=== PATIENT | female | born 1945 | race Caucasian/White ===

== ENCOUNTER 2017-01-07 19:14 | Inpatient (IN) | payer MEDICARE, OTHER ==
[~2017-01-07] VITALS: Ht 160 cm; Wt 65.4 kg
[~2017-01-07 19:14] MED LIST: ALBU8I INH; ASPI325T PO; BUPR150T3 PO; CLON.2 PO; DABI150 PO; DILTCD300 PO; DOCU1CAP39 PO; DOXY100 PO; ENAL10 PO; ENAL10TA7 PO; FERR324T4 PO; FLON0.053; GLUC1VIA2 IM; JANU50TA PO; LEVEMIR SQ; MAPA325T6 PO; NOVOLOGSS SQ; OMEP20TA39 PO; ROBIDM5S PO; SOTA80TA PO; ULTR50TA PO; VITA20002 PO
[2017-01-07 19:41] VITALS: BP 151/77; PULSE 97; RESP 18; TEMP 99.5; O2SAT 97
[2017-01-07] MEDS ORDERED: IBUPROFEN SUSP 100 MG/5 ML 120 ML BOTTLE PO ONE (20:15)
[2017-01-07 20:31] VITALS: RESP 26; O2SAT 96
--- NOTE | 2017-01-07 20:34 | RADRPT ---
EXAM DATE/TIME: 01/07/2017 20:04 [facility] COMPARISON: CHEST SINGLE AP, September 23, 2015, 4:45. INDICATIONS : Fever MEDICAL HISTORY : None. SURGICAL HISTORY : None. ENCOUNTER: Initial ACUITY: 1 day PAIN SCORE: 0/10 LOCATION: chest FINDINGS: There is mild prominence of the interstitial markings nonspecific may represent pulmonary edema. Slig ht cardiomegaly seen. CONCLUSION: Probable mild pulmonary edema. Fidelia Diallo MD on January 07, 2017 at 20:32 Board Certified Radiologist. This report was verified electronically.
[2017-01-07 20:43] LABS: HEMATOCRIT 29.9 % (35.0-46.0); MEAN CELL VOLUME 88.2 FL (80.0-100.0); MEAN CORPUSCULAR HEMOGLOBIN 28.4 PG (27.0-34.0); MEAN CORPUSCULAR HGB CONC 32.2 % (32.0-36.0); PLATELET COUNT 179 TH/MM3 (150-450); RED BLOOD COUNT 3.39 MIL/MM3 (4.00-5.30); RED CELL DISTRIBUTION WIDTH 15.7 % (11.6-17.2); WHITE BLOOD COUNT 9.2 TH/MM3 (4.0-11.0)
[2017-01-07 20:44] LABS: BLOOD, URINE TRACE (NEG); GLUCOSE,URINE 1000 mg/dL (NEG); KETONE, URINE NEG (NEG); NITRITE,URINE NEG (NEG); PH, URINE 5.5 (5.0-8.5); SQUAMOUS EPITHELIAL CELL URINE 3 /hpf (0-5); TRANSITIONAL EPI CELLS, URINE 1 /hpf; URINE COLOR YELLOW (YELLW/STRAW)
[2017-01-07 20:44] LABS: HEMO FLAGS AUTO DIFF
--- NOTE | 2017-01-07 20:44 | PD ---
HPI Chief Complaint: Fall Time Seen by Provider: 19:55 Travel History International Travel<30 days: No Contact w/Intl Traveler<30days: No Traveled to known affect area: No History of Present Illness HPI Patient is a 71-year-old female that presented to the department via EMS for evaluation after a fall. Patient resides at [facility]. Patient has dementia, she is a poor historian. EMS reported the patient had a fall. Patient reports that she hit her head. PFSH Past Medical History Hx Anticoagulant Therapy: Yes Anemia: Yes Arthritis: Yes (OSTEOARTHRITIS) Asthma: Yes Atrial Fibrillation: Yes Depression: Yes High Cholesterol: Yes Congestive Heart Failure: Yes COPD: Yes Dementia: Yes Diabetes: Yes (TYPE ONE ) Patient Takes Glucophage: No Gastrointestinal Disorders: Yes GERD: Yes Glaucoma: Yes Genitourinary: Yes (CHRONIC KIDNEY DISEASE) Hypertension: Yes Immune Disorder: No Neurologic: No Immunizations Current: Yes Pneumonia: Yes Menopausal: Yes Past Surgical History Surgical History: Unable to Obtain Social History Alcohol Use: No Tobacco Use: No Substance Use: No Allergies-Medications (Allergen,Severity, Reaction): Coded Allergies: Amoxicillin (Verified Allergy, Intermediate, 01/07/17) Ampicillin (Verified Allergy, Intermediate, 01/07/17) Azithromycin (Verified Allergy, Intermediate, 01/07/17) Reglan (Verified Allergy, Intermediate, 01/07/17) Tylenol (Verified Allergy, Intermediate, 01/07/17) Reported Meds & Prescriptions Reported Meds & Active Scripts Active Reported Meclizine (Meclizine HCl) 25 Mg Tab 25 Mg PO TID PRN Humalog Inj (Insulin Human Lispro) 1,000 Unit/10 Ml Vial 2-12 Units SQ ACHS Max dose at bedtime:( )units; sugars < 70,(0)units; sugars 150-199,(2)units; sugars 200-249,(4)units; sugars 250-299,(7)units; sugars 300-349,(10)units; sugars more than 349,(12)units. Diltiazem (Diltiazem HCl) 60 Mg Tab 60 Mg PO Q6HR Bystolic (Nebivolol) 10 Mg Tab 10 Mg PO BID Advair Hfa 12 GM Inh (Fluticasone-Salmeterol 12 GM Inh) 115-21 Mcg/Act Aer 2 Puff INH BID Calcitrate (Calcium Citrate) 950 Mg Tab 950 Mg PO BID Seroquel XR (Quetiapine Fumarate) 50 Mg Tab 50 Mg PO HS Klor-Con 10 (Potassium Chloride) 10 Meq Tab 10 Meq PO DAILY Ferrousul (Ferrous Sulfate) 325 Mg Tab 1 Tab PO DAILY Escitalopram (Escitalopram Oxalate) 10 Mg Tab 10 Mg PO DAILY Invanz Inj (Ertapenem) 1 Gm Addvial 500 Mg IV Q24H ADMINISTER IN 100ML NS Bumetanide 2 Mg Tab 2 Mg PO DAILY Amiodarone (Amiodarone HCl) 200 Mg Tab 200 Mg PO Q8HR Pradaxa 150 Mg Cap (Dabigatran) 150 Mg Cap 75 Mg PO BID Hm Omeprazole (Omeprazole) 20 Mg Tab 40 Mg PO DAILY Vitamin D-3 (Cholecalciferol) 2 000 Tab 1,000 Unit PO DAILY Flonase (Fluticasone Propionate) 0.05 % Naspr 1 Spr NA HS 1 SPRAY EACH NOSTRIL Mapap (Acetaminophen) 325 Mg Tab 650 Mg PO Q6H PRN Ventolin Hfa (Albuterol Sulfate) 8 Gm Aero 2 Puff INH Q4 PRN * SHAKE WELL BEFORE USE * Colace 100 Mg Cap (Docusate Sodium) 100 Mg Cap 100 Mg PO BID PRN Review of Systems ROS Limitations: Poor Historian Except as stated in HPI: all other systems reviewed are Neg Genitourinary: Positive: Frequency Musculoskeletal: Positive: Pain (head) Physical Exam Narrative GENERAL: Thin, elderly female. Resting in no acute distress. SKIN: Warm and dry. HEAD: Atraumatic. Normocephalic. EYES: Pupils equal and round. No scleral icterus. No injection or drainage. ENT: No nasal bleeding or discharge. Mucous membranes pink and moist. NECK: Trachea midline. No JVD. CARDIOVASCULAR: Tachycardic, irregularly irregular RESPIRATORY: No accessory muscle use. Clear to auscultation. Breath sounds equal and diminished bilaterally. GASTROINTESTINAL: Abdomen soft, non-tender, nondistended. Hepatic and splenic margins not palpable. MUSCULOSKELETAL: Extremities without clubbing, cyanosis, or edema. No obvious deformities. NEUROLOGICAL: Awake and alert. No obvious cranial nerve deficits. Motor grossly within normal limits. Five out of 5 muscle strength in the arms and legs. Normal speech. PSYCHIATRIC: Appropriate mood and affect; insight and judgment impaired. Data Data Last Documented VS Vital Signs Date Time Temp Pulse Resp B/P Pulse Ox O2 Delivery O2 Flow Rate FiO2 01/07/17 22:08 99.7 01/07/17 21:20 107 26 154/85 94 Nasal Cannula 2 Orders Complete Blood Count With Diff (01/07/17 20:01) Comprehensive Metabolic Panel (01/07/17 20:01) Prothrombin Time / Inr (Pt) (01/07/17 20:01) Act Partial Throm Time (Ptt) (01/07/17 20:01) Lactic Acid Sepsis Protocol (01/07/17 20:01) Magnesium (Mg) (01/07/17 20:01) Urinalysis - C+S If Indicated (01/07/17 20:01) Blood Culture (01/07/17 20:01) Chest, Single Ap (01/07/17 20:01) Blood Glucose (01/07/17 20:01) Ecg Monitoring (01/07/17 20:01) Iv Access Insert/Monitor (01/07/17 20:01) Oximetry (01/07/17 20:01) Oxygen Administration (01/07/17 20:01) Urinary Catheter Insert/Apply (01/07/17 20:01) Ct Brain W/O Iv Contrast(Rout) (01/07/17 20:01) Electrocardiogram (01/07/17 ) Ibuprofen Liq (Motrin Liq) (01/07/17 21:00) B-Type Natriuretic Peptide (01/07/17 21:08) Lorazepam Inj (Ativan Inj) (01/07/17 21:15) Restraints Non-Violent MARCOS.Q3H (01/07/17 21:51) Blood Glucose (01/07/17 22:11) Insulin Human Regular Inj (Novolin R Inj (01/07/17 22:30) Labs Laboratory Tests Test 01/07/17 01/07/17 19:25 20:20 Urine Color YELLOW Urine Turbidity HAZY Urine pH 5.5 Urine Specific [place] 1.017 Urine Protein TRACE mg/dL Urine Glucose (UA) 1000 mg/dL Urine Ketones NEG mg/dL Urine Occult Blood TRACE Urine Nitrite NEG Urine Bilirubin NEG Urine Urobilinogen LESS THAN 2.0 MG/DL Urine Leukocyte Esterase SMALL Urine RBC 2 /hpf Urine WBC 2 /hpf Urine Squamous Epithelial 3 /hpf Cells Urine Transitional Epithelial 1 /hpf Cells Microscopic Urinalysis Comment CATH-CULT NOT IND White Blood Count 9.2 TH/MM3 Red Blood Count 3.39 MIL/MM3 Hemoglobin 9.6 GM/DL Hematocrit 29.9 % Mean Corpuscular Volume 88.2 FL Mean Corpuscular Hemoglobin 28.4 PG Mean Corpuscular Hemoglobin 32.2 % Concent Red Cell Distribution Width 15.7 % Platelet Count 179 TH/MM3 Mean Platelet Volume 8.2 FL Neutrophils (%) (Auto) % Lymphocytes (%) (Auto) % Monocytes (%) (Auto) % Eosinophils (%) (Auto) % Basophils (%) (Auto) % Neutrophils # (Auto) TH/MM3 Lymphocytes # (Auto) TH/MM3 Monocytes # (Auto) TH/MM3 Eosinophils # (Auto) TH/MM3 Basophils # (Auto) TH/MM3 CBC Comment AUTO DIFF Differential Total Cells 100 Counted Neutrophils % (Manual) 79 % Lymphocytes % 11 % Monocytes % 6 % Eosinophils % 3 % Basophils % 1 % Neutrophils # (Manual) 7.3 TH/MM3 Differential Comment FINAL DIFF MANUAL Platelet Estimate NORMAL Platelet Morphology Comment NORMAL Red Cell Morphology Comment NORMAL Prothrombin Time 13.2 SEC Prothromb Time International 1.2 RATIO Ratio Activated Partial 41.7 SEC Thromboplast Time Sodium Level 139 MEQ/L Potassium Level 3.9 MEQ/L Chloride Level 100 MEQ/L Carbon Dioxide Level 32.1 MEQ/L Anion Gap 7 MEQ/L Blood Urea Nitrogen 52 MG/DL Creatinine 2.26 MG/DL Estimat Glomerular Filtration 21 ML/MIN Rate Random Glucose 328 MG/DL Lactic Acid Level 2.0 mmol/L Calcium Level 7.9 MG/DL Magnesium Level 1.8 MG/DL Total Bilirubin 0.3 MG/DL Aspartate Amino Transf 10 U/L (AST/SGOT) Alanine Aminotransferase 15 U/L (ALT/SGPT) Alkaline Phosphatase 100 U/L B-Type Natriuretic Peptide 493 PG/ML Total Protein 6.7 GM/DL Albumin 2.3 GM/DL MDM Medical Decision Making Medical Screen Exam Complete: Yes Emergency Medical Condition: Yes Interpretation(s) Vital Signs Date Time Temp Pulse Resp B/P Pulse Ox O2 Delivery O2 Flow Rate FiO2 01/07/17 20:31 96 Nasal Cannula 2 01/07/17 20:31 26 96 Nasal Cannula 2 01/07/17 19:55 99 16 99 Room Air 01/07/17 19:41 99.5 97 18 151/77 97 Differential Diagnosis Sepsis versus UTI versus contusion versus hemorrhage versus metabolic abnormality versus other Narrative Course Patient is a 71-year-old female sent by the [facility] and [facility] for evaluation after fall. There was no other information regarding the incident sent with patient, [facility] and was told that patient was found on the floor by teaching aide. Patient told the aide that she slipped and fell trying to get up for water and hit her head on the bedside table. Patient has a PICC line in the right upper arm, she was discharged from [facility] on Invanz for urinary tract infection. On arrival, patient is complaining of head pain and she has urinated 5 times during the admission assessment. Labs and imaging ordered and pending, Jewell catheter ordered. Initial EKG shows atrial fibrillation, with an incomplete right bundle branch block. Patient has history of atrial fibrillation. BUN and creatinine are markedly elevated 52 and 2.26, BNP is 493, chest x-ray shows mild pulmonary congestion. CT scan of the brain shows no acute abnormalities. Patient is mildly tachycardic with a rate of 100-103, her last recorded temperature is 99.7 Patient was given 8 units of regular insulin for blood glucose of 342. Discussed results of labs and imaging with Dr. Castañeda who excepted admission. Orders were placed. Sepsis Criteria SIRS Criteria (2 or more): Heart rate over 90, RR > 20 or PaCO2 < 32 Severe Sepsis (+one): Acute Oliguria/Renal Failure Diagnosis Primary Impression: Sepsis Qualified Code: A41.9 - Sepsis, due to unspecified organism Additional Impressions: ARF (acute renal failure) Qualified Code: N17.9 - Acute renal failure, unspecified acute renal failure type Fall Qualified Code: W19.XXXA - Fall, initial encounter Generalized weakness Admitting Information Admitting Physician Requests: Admit Condition: Stable Zandra Gu [facility] Jan 07, 2017 20:44
[2017-01-07 20:45] LABS: COMMENT (UR) CATH-CULT NOT IND; CULTURE IF INDICATED CATH CULTURE NOT IND
[2017-01-07 20:55] LABS: ANION GAP 7 MEQ/L (5-15); AST (GOT) 10 U/L (15-37); BICARBONATE 32.1 MEQ/L (21.0-32.0); BLOOD UREA NITROGEN 52 MG/DL (7-18); CHLORIDE 100 MEQ/L (98-107); GLOMERULAR FILTRATION RATE 21 ML/MIN (>89); MAGNESIUM 1.8 MG/DL (1.5-2.5); POTASSIUM 3.9 MEQ/L (3.5-5.1); SODIUM (NA) 139 MEQ/L (136-145)
[2017-01-07 20:56] LABS: ALT (GPT) 15 U/L (10-53)
[2017-01-07 20:59] LABS: ALKALINE PHOSPHATASE 100 U/L (45-117); TOTAL BILIRUBIN ADULT 0.3 MG/DL (0.2-1.0)
[2017-01-07] MEDS ORDERED: IBUPROFEN SUSP 100 MG/5 ML UDC PO ONE (21:00)
[2017-01-07 21:02] LABS: APTT (PATIENT) 41.7 SEC (24.3-30.1); INTERNATIONAL NORMALIZED RATIO 1.2 RATIO; PROTHROMBIN TIME - PATIENT 13.2 SEC (9.8-11.6)
[2017-01-07 21:10] LABS: BASOPHILS 1 % (0-2); EOSINOPHILS 3 % (0-4); NEUTROPHIL # MANUAL DIFF 7.3 TH/MM3 (1.8-7.7); PLATELET ESTIMATE SMEAR NORMAL (NORMAL); PLATELET MORPHOLOGY NORMAL (NORMAL); POLYS (SEG NEUTROPHILS) 79 % (16-70); SCAN/DIFF FINAL DIFF MANUAL; WBC DIFF SAMPLE 100
[2017-01-07] MEDS ORDERED: LORazepam 2 MG/ML VIAL IV PUSH ONE (21:15)
[2017-01-07 21:20] VITALS: BP 154/85; PULSE 107; RESP 26; TEMP 100.4; O2SAT 94
[2017-01-07] MEDS ORDERED: BUME2TAB PO (21:29)
[2017-01-07] MEDS ORDERED: INVA1INJ IV (21:29)
[2017-01-07] MEDS ORDERED: AMIO200T PO (21:29)
[2017-01-07] MEDS ORDERED: CALC950T2 PO (21:46)
[2017-01-07] MEDS ORDERED: HUMALOG SQ (21:46)
[2017-01-07] MEDS ORDERED: MECL-62 PO (21:46)
[2017-01-07] MEDS ORDERED: QUET50XR PO (21:46)
[2017-01-07] MEDS ORDERED: BYST10TA2 PO (21:46)
[2017-01-07] MEDS ORDERED: ESCI10TA PO (21:46)
[2017-01-07] MEDS ORDERED: ADVA115A INH (21:46)
[2017-01-07] MEDS ORDERED: POTA-243 PO (21:46)
[2017-01-07] MEDS ORDERED: DILT60TA PO (21:46)
[2017-01-07] MEDS ORDERED: FERR325T86 PO (21:46)
[2017-01-07 22:08] VITALS: TEMP 99.7
--- NOTE | 2017-01-07 22:23 | RADRPT ---
EXAM DATE/TIME: 01/07/2017 22:09 [facility] COMPARISON: CT BRAIN W/O CONTRAST, October 02, 2014, 20:20. INDICATIONS : Altered mental status. RADIATION DOSE: 56.35 CTDIvol (mGy) MEDICAL HISTORY : Dementia. Cardiovascular disease Congestive heart failure.Diabetes SURGICAL HISTORY : None. ENCOUNTER: Initial ACUITY: 1 day PAIN SCALE: Non-responsive LOCATION: cranial TECHNIQUE: Multiple contiguous axial images were obtained of the head. Using automated exposure control and adj ustment of the mA and/or kV according to patient size, radiation dose was kept as low as reasonably a chievable to obtain optimal diagnostic quality images. DICOM format image data is available electro nically for review and comparison. FINDINGS: There is no evidence for intracranial hemorrhage, mass effect, mass lesions, or edema. The visualize d bony structures appear intact. Slight degree of brain atrophy is seen. Slight periventricular whit e matter changes are seen nonspecific mostly consistent with chronic small vessel ischemic changes. There are no signs of acute infarction for technique. CONCLUSION: Slight atrophic and small vessel ischemic changes without any evidence for acute hemorrhage or mass effect. Fidelia Diallo MD on January 07, 2017 at 22:18 Board Certified Radiologist. This report was verified electronically.
[2017-01-07] MEDS ORDERED: INSULIN HUMAN REGULAR 1,000 UNITS/10 ML VIAL SQ ONE (22:30)
[2017-01-07] MEDS ORDERED: SENNOSIDES 8.6 MG TAB PO PRN (22:45)
[2017-01-07] MEDS ORDERED: ONDANSETRON HCL 4 MG/2 ML VIAL IVP PRN (22:45)
[2017-01-07] MEDS ORDERED: MAGNESIUM HYDROXIDE SUSP 30 ML CUP PO PRN (22:45)
[2017-01-07] MEDS ORDERED: BISACODYL 10 MG SUPP RECTAL PRN (22:45)
[2017-01-07] MEDS ORDERED: SODIUM CHLORIDE 0.9% FLUSH 10 ML FLUSH IV FLUSH PRN (22:45)
[2017-01-07] MEDS ORDERED: LACTULOSE SYRUP 20 GM/30 ML CUP PO PRN (22:45)
--- NOTE | 2017-01-07 22:45 | HHI.HP ---
[facility] Service [facility] Primary Care Physician Taco Morrow MD Admission Diagnosis SEPSIS, ARF Diagnoses: (1) Sepsis Diagnosis: Principal (2) UTI (urinary tract infection) Diagnosis: Principal (3) GUSTAVO (acute kidney injury) Diagnosis: Principal (4) A-fib Diagnosis: Principal (5) COPD (chronic obstructive pulmonary disease) Diagnosis: Principal (6) Dementia Diagnosis: Principal (7) DM (diabetes mellitus) Diagnosis: Principal Travel History International Travel<30 Days: No Contact w/Intl Traveler <30 Da: No Traveled to Known Affected Are: No History of Present Illness This is a 71-year-old female with a PMH of Depression, HTN, Hyperlipidemia, CHF (Echo 09/22/15 w/ EF 65-70%), A-fib on Pradaxa, Dm, Glaucoma, Dementia and UTI who was sent to the ER from [facility] for eval after unwitnessed fall. Per report, pt found down by staff member. Pt unable to provide history secondary to underlying dementia but is able to say she hit her head. No apparent LOC. On arrival, BP 151/77, HR 97, O2 sat 97% on RA, Temp 100.4. WBC normal however elevated neutrophil count. Creatinine 2.26, previously 1.03 on . BNP 493. Lactic Acid 2.0. INR 1.2. UA with small LE and mild bacteriuria. CXR with possible mild pulmonary edema. CT Head with no acute findings. Per review of records, patient with recent admission to , found to have ESBL UTI, on Ertapenem 1gm qd, started on 01/05/17 x10 days. Review of Systems Except as stated in HPI: all other systems reviewed are Neg ROS: Unable to obtain Past Family Social History Past Medical History PMH: Depression, HTN, Hyperlipidemia, CHF (Echo 09/22/15 w/ EF 65-70%), A-fib on Pradaxa, Dm, Glaucoma, Dementia and UTI Past Surgical History PAST SURGICAL HISTORY: Unknown Allergies: Coded Allergies: Amoxicillin (Verified Allergy, Intermediate, 01/07/17) Ampicillin (Verified Allergy, Intermediate, 01/07/17) Azithromycin (Verified Allergy, Intermediate, 01/07/17) Reglan (Verified Allergy, Intermediate, 01/07/17) Tylenol (Verified Allergy, Intermediate, 01/07/17) Family History PAST FAMILY HISTORY: Reviewed. No h/o DM or CAD Social History PAST SOCIAL HISTORY: Reportedly negative for alcohol, tobacco or drugs. Physical Exam Vital Signs Vital Signs Date Time Temp Pulse Resp B/P Pulse Ox O2 Delivery O2 Flow Rate FiO2 01/07/17 22:08 99.7 01/07/17 21:20 100.4 107 26 154/85 94 Nasal Cannula 2 01/07/17 20:31 96 Nasal Cannula 2 01/07/17 20:31 26 96 Nasal Cannula 2 01/07/17 19:55 99 16 99 Room Air 01/07/17 19:41 99.5 97 18 151/77 97 Physical Exam PE: GENERAL: Elderly white female in no acute distress. HEENT: PERRLA, EOMI. No scleral icterus or conjunctival pallor. No lid lag or facial droop. CARDIOVASCULAR: Irregularly irregular, and A. fib. No obvious murmurs to auscultation. No chest tenderness to palpation. RESPIRATORY: No obvious rhonchi or wheezing. Clear to auscultation. Breath sounds equal bilaterally. GASTROINTESTINAL: Abdomen soft, non-tender, nondistended. BS normal. MUSCULOSKELETAL: Extremities without clubbing, cyanosis, or edema. No obvious deformities. NEUROLOGICAL: Awake, alert and oriented x4. No focal neurologic deficits. Moving both upper and lower extremities spontaneously. Laboratory Laboratory Tests Test 01/07/17 01/07/17 19:25 20:20 Urine Color YELLOW Urine Turbidity HAZY Urine pH 5.5 Urine Specific [place] 1.017 Urine Protein TRACE Urine Glucose (UA) 1000 Urine Ketones NEG Urine Occult Blood TRACE Urine Nitrite NEG Urine Bilirubin NEG Urine Urobilinogen LESS THAN 2.0 Urine Leukocyte Esterase SMALL Urine RBC 2 Urine WBC 2 Urine Squamous Epithelial 3 Cells Urine Transitional Epithelial 1 Cells Microscopic Urinalysis Comment CATH-CULT NOT IND White Blood Count 9.2 Red Blood Count 3.39 Hemoglobin 9.6 Hematocrit 29.9 Mean Corpuscular Volume 88.2 Mean Corpuscular Hemoglobin 28.4 Mean Corpuscular Hemoglobin 32.2 Concent Red Cell Distribution Width 15.7 Platelet Count 179 Mean Platelet Volume 8.2 Neutrophils (%) (Auto) Lymphocytes (%) (Auto) Monocytes (%) (Auto) Eosinophils (%) (Auto) Basophils (%) (Auto) Neutrophils # (Auto) Lymphocytes # (Auto) Monocytes # (Auto) Eosinophils # (Auto) Basophils # (Auto) CBC Comment AUTO DIFF Differential Total Cells 100 Counted Neutrophils % (Manual) 79 Lymphocytes % 11 Monocytes % 6 Eosinophils % 3 Basophils % 1 Neutrophils # (Manual) 7.3 Differential Comment FINAL DIFF MANUAL Platelet Estimate NORMAL Platelet Morphology Comment NORMAL Red Cell Morphology Comment NORMAL Prothrombin Time 13.2 Prothromb Time International 1.2 Ratio Activated Partial 41.7 Thromboplast Time Sodium Level 139 Potassium Level 3.9 Chloride Level 100 Carbon Dioxide Level 32.1 Anion Gap 7 Blood Urea Nitrogen 52 Creatinine 2.26 Estimat Glomerular Filtration 21 Rate Random Glucose 328 Lactic Acid Level 2.0 Calcium Level 7.9 Magnesium Level 1.8 Total Bilirubin 0.3 Aspartate Amino Transf 10 (AST/SGOT) Alanine Aminotransferase 15 (ALT/SGPT) Alkaline Phosphatase 100 B-Type Natriuretic Peptide 493 Total Protein 6.7 Albumin 2.3 Date/Time Procedure Status Source Growth 01/07/17 20:20 Aerobic Blood Culture Received Blood Peripheral Pending 01/07/17 20:20 Anaerobic Blood Culture Received Blood Peripheral Pending Result Diagram: 01/07/17201901/07/172019 Assessment and Plan Problem List: (1) Fall ICD Code: W19.XXXA Status: Acute (2) Sepsis ICD Code: A41.9 Status: Acute (3) UTI (urinary tract infection) ICD Code: N39.0 Status: Acute (4) GUSTAVO (acute kidney injury) ICD Code: N17.9 Status: Acute (5) A-fib ICD Code: I48.91 Status: Acute (6) Dementia ICD Code: F03.90 Status: Acute (7) DM (diabetes mellitus) ICD Code: E11.9 Status: Acute Assessment and Plan A/P: 1. Fall: s/p unwitnessed fall at Rehab, found by staff member, reports +head trauma, no LOC. CT Head w/ no acute findings. No other injuries noted. 2. Sepsis: Temp 100.4, RR 26, HR 107, WBC normal however elevated neutrophil count, on outpatient IV Abx for UTI. S/p Blood Cultures, will follow. 3. UTI: Per records, pt currently on Ertapenem 1gm qd for ESBL UTI, started tx on 01/05/17 x10 days. U/a w/ small LE and minimal bacteriuria. Will consult ID for further recommendations regarding IV Abx. 4. GUSTAVO: Creatinine 2.26, previously 1.03 on 09/28/15. IVF for hydration, repeat labs in am. Hold Bumex for now. 5. A-fib: Chronic. Resume home Diltiazem, Bystolic and Pradaxa 6. Dementia: Seemingly at baseline, resume home medications. 7. DM: Sliding scale w/ Accu-Cheks. 8. DVT Prophylaxis: on Pradaxa. 9. Social work for d/c planning as needed. 10. Case discussed w/ ER physician at length. Physician Certification 2 Midnight Certification Type: Admission for Inpatient Services Order for Inpatient Services The services are ordered in accordance with Medicare regulations or non- Medicare payer requirements, as applicable. In the case of services not specified as inpatient-only, they are appropriately provided as inpatient services in accordance with the 2-midnight benchmark. Estimated LOS (days): 2 days is the estimated time the patient will need to remain in the hospital, assuming treatment plan goals are met and no additional complications. Post-Hospital Plan: Not yet determined Problem Qualifiers (1) Sepsis: Qualified Code: A41.9 - Sepsis, due to unspecified organism (2) Fall: Qualified Code: W19.XXXA - Fall, initial encounter Anige Castañeda MD Jan 07, 2017 22:45
[2017-01-07 23:29] VITALS: BP 155/66; PULSE 86; RESP 24; TEMP 98.3; O2SAT 100
[2017-01-07] MEDS: SODIUM CHLOR 0.9% 1000 ML INJ 1,000 ML IV SCH (23:29)
[2017-01-08] VITALS (14 sets, daily range): BP systolic 129–167; BP diastolic 54–86; PULSE 50–88; RESP 16–24; TEMP 97.8–100.4; O2SAT 95–100
[2017-01-08] MEDS: DILTIAZEM HCL 60 MG TAB PO SCH ×5 (00:08→23:14)
[2017-01-08 04:37] LABS: AUTOMATED NEUTROPHIL # 6.6 TH/MM3 (1.8-7.7); BASOPHIL # 0.1 TH/MM3 (0-0.2); BASOPHIL % 1.3 % (0.0-2.0); EOSINOPHIL # 0.2 TH/MM3 (0-0.4); EOSINOPHIL % 2.6 % (0.0-4.0); HEMATOCRIT 27.9 % (35.0-46.0); HEMO FLAGS DIFF FINAL; LYMPH % 17.3 % (9.0-44.0); LYMPHOCYTE # 1.6 TH/MM3 (1.0-4.8); MEAN CELL VOLUME 87.6 FL (80.0-100.0); MEAN CORPUSCULAR HEMOGLOBIN 28.5 PG (27.0-34.0); MEAN CORPUSCULAR HGB CONC 32.6 % (32.0-36.0); MONO % 9.3 % (0.0-8.0); NEUT % 69.5 % (16.0-70.0); PLATELET COUNT 156 TH/MM3 (150-450); RED BLOOD COUNT 3.19 MIL/MM3 (4.00-5.30); RED CELL DISTRIBUTION WIDTH 15.9 % (11.6-17.2); WHITE BLOOD COUNT 9.5 TH/MM3 (4.0-11.0)
[2017-01-08 05:10] LABS: ALKALINE PHOSPHATASE 80 U/L (45-117); ALT (GPT) 12 U/L (10-53); ANION GAP 6 MEQ/L (5-15); AST (GOT) 10 U/L (15-37); BICARBONATE 31.9 MEQ/L (21.0-32.0); BLOOD UREA NITROGEN 54 MG/DL (7-18); CHLORIDE 107 MEQ/L (98-107); GLOMERULAR FILTRATION RATE 24 ML/MIN (>89); SODIUM (NA) 145 MEQ/L (136-145); TOTAL BILIRUBIN ADULT 0.3 MG/DL (0.2-1.0)
[2017-01-08] MEDS: AMIODARONE 200 MG TAB PO SCH ×3 (06:41→21:25)
[2017-01-08] MEDS: SODIUM CHLORIDE 0.9% FLUSH 10 ML FLUSH IV FLUSH SCH ×2 (09:00→21:25)
[2017-01-08] MEDS ORDERED: FLUTICASONE SALMETEROL INH SCH (09:00)
[2017-01-08] MEDS: ESCITALOPRAM OXALATE 10 MG TAB PO SCH (09:24)
[2017-01-08] MEDS: DOCUSATE SODIUM 50 MG/SENNA 8.6 MG TAB PO SCH ×2 (09:24→21:00)
[2017-01-08] MEDS: QUEtiapine FUMARATE 25 MG TAB PO SCH ×2 (09:24→21:25)
[2017-01-08] MEDS: NEBIVOLOL 10 MG TAB PO SCH ×2 (09:24→21:24)
[2017-01-08] MEDS: DABIGATRAN ETEXILATE 75 MG CAP PO SCH ×2 (09:24→21:24)
[2017-01-08] MEDS: SODIUM CHLOR 0.9% 1000 ML INJ 1,000 ML IV SCH ×2 (09:25→17:58)
--- NOTE | 2017-01-08 16:16 | HHI.PR ---
Subjective Remarks Written by Juliet Jacome PA-C acting as scribe for Dr. Simon on 01/08/17 at 15:38. Follow up on patient with ESBL UTI, Dementia and fall. Patient seen and examined today. Patient appears sedated. Awakens to sternal rub. Follows some commands. Patient denies any N/V, chest pain, SOB or abdominal pain. Patient is afebrile. VSS. Objective Vitals Vital Signs Date Time Temp Pulse Resp B/P Pulse Ox O2 Delivery O2 Flow Rate FiO2 01/08/17 12:00 63 01/08/17 12:00 98.9 60 24 130/65 96 01/08/17 11:15 60 18 151/78 97 01/08/17 09:40 57 22 135/86 97 Nasal Cannula 2 01/08/17 06:30 83 16 167/77 98 Room Air 01/08/17 04:00 80 16 131/54 100 Room Air 01/08/17 02:38 97.8 79 22 139/73 97 Nasal Cannula 2 01/07/17 23:29 98.3 86 24 155/66 100 Nasal Cannula 2 01/07/17 22:08 99.7 01/07/17 21:20 100.4 107 26 154/85 94 Nasal Cannula 2 01/07/17 20:31 96 Nasal Cannula 2 01/07/17 20:31 26 96 Nasal Cannula 2 01/07/17 19:55 99 16 99 Room Air 01/07/17 19:41 99.5 97 18 151/77 97 I/O 01/07/17 01/07/17 01/07/17 01/08/17 01/08/17 01/08/17 07:00 15:00 23:00 07:00 15:00 23:00 Output Total 475 ml Balance -475 ml Output Urine Total 475 ml Result Diagram: 01/08/17 0409 01/08/17 0409 Imaging Last Impressions Head CT 01/07/172000 Signed Impressions: Service Date/Time: Saturday, January 07, 2017 22:09 - CONCLUSION: Slight atrophic and small vessel ischemic changes without any evidence for acute hemorrhage or mass effect. Fidelia Diallo MD Chest X-Ray 01/07/172000 Signed Impressions: Service Date/Time: Saturday, January 07, 2017 20:04 - CONCLUSION: Probable mild pulmonary edema. Fidelia Diallo MD Objective Remarks GENERAL: Well-nourished, well-developed elderly patient in [place]. Lethargic. Lying in hospital bed. Opens eyes to sternal rub. Shakes head no in response to questions. Follows some commands. SKIN: Warm and dry. No rash. HEENT: Normocephalic. Atraumatic. EOMI. MMM. NECK: Supple. Trachea midline. CARDIOVASCULAR: Regular rate and rhythm. S1, S2 noted. No murmur appreciated. RESPIRATORY: No accessory muscle use. Clear to auscultation. Breath sounds equal bilaterally. GASTROINTESTINAL: Abdomen soft, non-tender, nondistended. Normoactive bowel sounds x4. MUSCULOSKELETAL: No obvious deformities. Extremities without clubbing, cyanosis , or edema. NEUROLOGICAL: Appears lethargic. Able to move all extremities. PSYCHIATRIC: Confused. Medications and IVs Current Medications Medications (Trade) Dose Ordered Sig/Sonali Route Start Time Stop Time Status Last Admin (NS 1000 ml Inj) 1,000 ml @ 100 mls/hr Q10H IV 01/07/17 23:00 01/08/17 09:25 (NS Flush) 2 ml UNSCH PRN IV FLUSH 01/07/17 22:45 (NS Flush) 2 ml BID IV FLUSH 01/08/17 09:00 (Zofran Inj) 4 mg Q6H PRN IVP 01/07/17 22:45 (Leatha-Colace) 1 tab BID PO 01/08/17 09:00 01/08/17 09:24 (Milk Of Magnesia Liq) 30 ml Q12H PRN PO 01/07/17 22:45 (Senokot) 17.2 mg Q12H PRN PO 01/07/17 22:45 (Dulcolax Supp) 10 mg DAILY PRN RECTAL 01/07/17 22:45 (Lactulose Liq) 30 ml DAILY PRN PO 01/07/17 22:45 (Cordarone) 200 mg Q8HR PO 01/08/17 06:00 01/08/17 13:55 (Pradaxa) 75 mg BID PO 01/08/17 09:00 01/08/17 09:24 (Cardizem) 60 mg Q6HR PO 01/08/17 00:00 01/08/17 12:00 (Lexapro) 10 mg DAILY PO 01/08/17 09:00 01/08/17 09:24 (Bystolic) 10 mg BID PO 01/08/17 09:00 01/08/17 09:24 Patient Own Medication PT OWN MED: 2 INH BID BID INH 01/08/17 09:00 Hold (SEROquel) 25 mg BID PO 01/08/17 09:00 01/08/17 09:24 A/P Problem List: (1) Fall ICD Code: W19.XXXA Status: Acute (2) Sepsis ICD Code: A41.9 Status: Acute (3) UTI (urinary tract infection) ICD Code: N39.0 Status: Acute (4) GUSTAVO (acute kidney injury) ICD Code: N17.9 Status: Acute (5) A-fib ICD Code: I48.91 Status: Acute (6) Dementia ICD Code: F03.90 Status: Acute (7) DM (diabetes mellitus) ICD Code: E11.9 Status: Acute Assessment and Plan 71yo female with dementia, afib on Pradaxa and recently diagnosed ESBL UTI on Ertapenem admitted s/p fall and closed head trauma. Fall Dementia - unwitnessed fall at Rehab, found by staff member, reports +head trauma, no LOC. - CT Head w/ no acute findings. No other injuries noted. - Consult PT - swallow evaluation - continue home medications - case mgmt consulted to assist with discharge planning Sepsis, source ESBL UTI - Temp 100.4, RR 26, HR 107, WBC normal however elevated neutrophil count, on outpatient IV Abx for UTI. - Lactic acid 2.0 - Blood Cultures show no growth x 24hrs - patient now afebrile UTI - Per records, pt currently on Ertapenem 1gm qd for ESBL UTI, started tx on x10 days. - U/a w/ small LE and minimal bacteriuria - culture not indicated. - ID consulted for further recommendations regarding IV Abx. GUSTAVO - Creatinine 2.26, previously 1.03 on 09/28/15. Improving, now 2.04 - continue IVF for hydration - continue to hold Bumex for now. - avoid nephrotoxic agents - am labs to monitor trend A-fib, chronic - rate controlled - Continue home Diltiazem, Amiodarone, Bystolic and Pradaxa DM Hyperglycemia - BS 405 at admission - continue Sliding scale w/ Accu-Cheks. - obtain hgbA1c - BS 129 this am Anemia - hemoglobin 9.6 --> 9.1 - no e/o active bleeding - obtain am labs to monitor trend DVT Prophylaxis - Patient is on Pradaxa. This note was transcribed by willian Jacome. I, Dr. Alexa Simon personally performed the history, physical exam, and medical decision making; and confirmed the accuracy of the information in the transcribed note. Authenticated by Dr. Alexa Simon on 01/08/17 at 15:38. Problem Qualifiers (1) Fall: Qualified Code: W19.XXXA - Fall, initial encounter (2) Sepsis: Qualified Code: A41.9 - Sepsis, due to unspecified organism Juliet Jacome Jan 08, 2017 16:16 Alexa Simon MD Jan 08, 2017 19:53
[2017-01-08] MEDS ORDERED: MISCELLANEOUS PHARMACY INFORMATION XX PRN (17:00)
[2017-01-08] MEDS ORDERED: ASP: Documented ESBL, MDR A baumannii or P. aeruginosa PRN (17:00)
--- NOTE | 2017-01-08 17:00 | PD.CONS ---
History of Present Illness Service Infectious Disease Consult Requested By Dr Castañeda Reason for Consult Evaluate patient with ESBL UTI, on Invanz in SNF Primary Care Physician Taco Morrow MD Diagnoses: History of Present Illness Patient seen and examined. Records reviewed. Patient is a very poor historian Patient is a 71-year-old female, with underlying dementia, was reportedly just recently hospitalized at [facility], and was found to have Escherichia coli UTI. She was supposedly on Invanz. On day of admission patient was found down by a staff member. She had not unwitnessed fall there was apparently no loss of consciousness, and she stated she hit her head. Evaluation in the emergency room, did not show any acute findings on CT of the head. Chest x-ray showed some mild pulmonary edema. Her urinalysis was unremarkable, and a Browne catheter was placed in the emergency room. Temperature since admission was 100.4. Her WBC is normal. Creatinine is elevated at 2.26. Unable to get any review of systems because of her underlying dementia. Infectious disease consultation has been requested to evaluate the patient on antibiotics for UTI. Review of Systems ROS Limitations: Clinical Condition, Altered Mental Status, Poor Historian Past Family Social History Allergies: Coded Allergies: Amoxicillin (Verified Allergy, Intermediate, 01/07/17) Ampicillin (Verified Allergy, Intermediate, 01/07/17) Azithromycin (Verified Allergy, Intermediate, 01/07/17) Reglan (Verified Allergy, Intermediate, 01/07/17) Tylenol (Verified Allergy, Intermediate, 01/07/17) Past Medical History Depression Hypertension Hyperlipidemia There is mention of CHF Atrial fibrillation Diabetes Glaucoma Dementia UTI Past Surgical History Not known Active Ordered Medications Cordarone Dulcolax Pyridoxine Cardizem Lexapro Lactulose MOM Bystolic Zofran Seroquel Leatha-Colace Senokot Family History Not known Social History Resides in the shelter No smoking No alcohol abuse No illicit drugs Physical Exam Vital Signs Vital Signs Date Time Temp Pulse Resp B/P Pulse Ox O2 Delivery O2 Flow Rate FiO2 01/08/17 16:00 99.2 67 20 129/72 99 01/08/17 16:00 64 01/08/17 15:00 60 01/08/17 14:00 50 01/08/17 13:00 62 01/08/17 12:00 63 01/08/17 12:00 98.9 60 24 130/65 96 01/08/17 11:15 60 18 151/78 97 01/08/17 09:40 57 22 135/86 97 Nasal Cannula 2 01/08/17 06:30 83 16 167/77 98 Room Air 01/08/17 04:00 80 16 131/54 100 Room Air 01/08/17 02:38 97.8 79 22 139/73 97 Nasal Cannula 2 01/07/17 23:29 98.3 86 24 155/66 100 Nasal Cannula 2 01/07/17 22:08 99.7 01/07/17 21:20 100.4 107 26 154/85 94 Nasal Cannula 2 01/07/17 20:31 96 Nasal Cannula 2 01/07/17 20:31 26 96 Nasal Cannula 2 01/07/17 19:55 99 16 99 Room Air 01/07/17 19:41 99.5 97 18 151/77 97 Physical Exam GENERAL: Patient is a well-nourished, well-developed elderly CF, awake and alert, not in respiratory distress. SKIN: Warm and dry. No generalized rash, no ecchymoses and no evidence of embolic lesions. HEAD: Atraumatic. Normocephalic. No temporal wasting, or tenderness. EYES: [place] conjunctiva. No petechia or hemorrhage. Pupils equal, round and reactive to light. Extraocular movements full and intact. No scleral icterus. No injection or drainage. EARS, NOSE AND THROAT: Nose without bleeding or purulent nasal discharge. No sinus tenderness. Mucous membranes pink and moist. No oral lesions noted. NECK: Trachea midline. Supple and not tender, no meningeal signs CARDIOVASCULAR: Regular rate and rhythm. No murmurs, rubs or gallops heard RESPIRATORY: Clear to auscultation. Breath sounds equal bilaterally. No rales , wheezing or rhonchi ABDOMEN: Soft, non-tender, nondistended. Bowel sounds present and normoactive. No guarding. No rebound. No organomegaly. EXTREMITIES: No clubbing, cyanosis, or edema.No joint effusion, has good ROM. No calf tenderness. Well perfused and warm. NEUROLOGICAL: Awake and alert. Cranial nerves grossly intact. Motor grossly within normal limits. PSYCHIATRIC: Normal affect, calm and cooperative. LINE: No evidence of infection : Browne in place, urine looks clear Laboratory Laboratory Tests Test 01/07/17 01/07/17 01/08/17 19:25 20:20 04:09 Urine Color YELLOW Urine Turbidity HAZY Urine pH 5.5 Urine Specific [place] 1.017 Urine Protein TRACE Urine Glucose (UA) 1000 Urine Ketones NEG Urine Occult Blood TRACE Urine Nitrite NEG Urine Bilirubin NEG Urine Urobilinogen LESS THAN 2.0 Urine Leukocyte Esterase SMALL Urine RBC 2 Urine WBC 2 Urine Squamous Epithelial 3 Cells Urine Transitional Epithelial 1 Cells Microscopic Urinalysis Comment CATH-CULT NOT IND White Blood Count 9.2 9.5 Red Blood Count 3.39 3.19 Hemoglobin 9.6 9.1 Hematocrit 29.9 27.9 Mean Corpuscular Volume 88.2 87.6 Mean Corpuscular Hemoglobin 28.4 28.5 Mean Corpuscular Hemoglobin 32.2 32.6 Concent Red Cell Distribution Width 15.7 15.9 Platelet Count 179 156 Mean Platelet Volume 8.2 8.3 Neutrophils (%) (Auto) 69.5 Lymphocytes (%) (Auto) 17.3 Monocytes (%) (Auto) 9.3 Eosinophils (%) (Auto) 2.6 Basophils (%) (Auto) 1.3 Neutrophils # (Auto) 6.6 Lymphocytes # (Auto) 1.6 Monocytes # (Auto) 0.9 Eosinophils # (Auto) 0.2 Basophils # (Auto) 0.1 CBC Comment AUTO DIFF DIFF FINAL Differential Total Cells 100 Counted Neutrophils % (Manual) 79 Lymphocytes % 11 Monocytes % 6 Eosinophils % 3 Basophils % 1 Neutrophils # (Manual) 7.3 Differential Comment FINAL DIFF MANUAL Platelet Estimate NORMAL Platelet Morphology Comment NORMAL Red Cell Morphology Comment NORMAL Prothrombin Time 13.2 Prothromb Time International 1.2 Ratio Activated Partial 41.7 Thromboplast Time Sodium Level 139 145 Potassium Level 3.9 4.0 Chloride Level 100 107 Carbon Dioxide Level 32.1 31.9 Anion Gap 7 6 Blood Urea Nitrogen 52 54 Creatinine 2.26 2.04 Estimat Glomerular Filtration 21 24 Rate Random Glucose 328 61 Lactic Acid Level 2.0 Calcium Level 7.9 7.8 Magnesium Level 1.8 Total Bilirubin 0.3 0.3 Aspartate Amino Transf 10 10 (AST/SGOT) Alanine Aminotransferase 15 12 (ALT/SGPT) Alkaline Phosphatase 100 80 B-Type Natriuretic Peptide 493 Total Protein 6.7 6.5 Albumin 2.3 2.2 Date/Time Procedure Status Source Growth 01/07/17 20:20 Aerobic Blood Culture - Preliminary Resulted Blood Peripheral NO GROWTH IN 1 DAY 01/07/17 20:20 Anaerobic Blood Culture - Preliminary Resulted Blood Peripheral NO GROWTH IN 1 DAY Result Diagram: 01/08/17 0409 01/08/17 0409 Imaging RADIOLOGY STUDIES/FILMS REVIEWED Head CT 01/07/172000 Signed Impressions: Service Date/Time: Saturday, January 07, 2017 22:09 - CONCLUSION: Slight atrophic and small vessel ischemic changes without any evidence for acute hemorrhage or mass effect. Fidelia Diallo MD Chest X-Ray 01/07/172000 Signed Impressions: Service Date/Time: Saturday, January 07, 2017 20:04 - CONCLUSION: Probable mild pulmonary edema. Fidelia Diallo MD Assessment and Plan Assessment and Plan IMPRESSION Recent Dx of UTI with E coli ESBL (+) - no browne - on Invanz in the [place] S/P fall, CT head negative Dementia Low grade temps Renal insufficiency RECOMMENDATION Get records from [facility] Restart Invanz Monitor temps Follow C/S May need to do renal US if not done in [facility] Monitor progress I will follow along with you Thank you for this consultation Jeniffer Eubanks MD Jan 08, 2017 17:00
[2017-01-08] MEDS ORDERED: ERTAPENEM INJ 1,000 MG in SODIUM CHLORIDE 0.9% INJ 100 ML IV SCH (18:00)
[2017-01-08] MEDS ORDERED: GLUCAGON 1 MG/ML VIAL OTHER PRN (21:00)
[2017-01-08] MEDS ORDERED: DEXTROSE 50% IN WATER 50 ML VIAL(D50) IV PRN (21:00)
[2017-01-08] MEDS: INSULIN ASPART SUPPLEMENTAL SCALE SQ SCH (21:27)
[2017-01-08 22:10] LABS: HEMOGLOBIN A1a 1.2 %; HEMOGLOBIN A1b 0.8 %; HEMOGLOBIN Ao 81.5 %; HEMOGLOBIN F 1.4 %; HEMOGLOBIN LA1C 1.6 %; HEMOGLOBIN P3 6.5 %
[2017-01-09] VITALS (9 sets, daily range): BP systolic 101–150; BP diastolic 60–87; PULSE 54–108; RESP 18–20; TEMP 96–98.6; O2SAT 94–100
[2017-01-09] MEDS: DILTIAZEM HCL 60 MG TAB PO SCH ×3 (05:18→16:44)
[2017-01-09] MEDS: AMIODARONE 200 MG TAB PO SCH ×3 (05:18→21:35)
[2017-01-09] MEDS: SODIUM CHLOR 0.9% 1000 ML INJ 1,000 ML IV SCH ×2 (05:19→16:44)
[2017-01-09 05:48] LABS: AUTOMATED NEUTROPHIL # 6.8 TH/MM3 (1.8-7.7); BASOPHIL # 0.1 TH/MM3 (0-0.2); BASOPHIL % 0.8 % (0.0-2.0); EOSINOPHIL # 0.2 TH/MM3 (0-0.4); EOSINOPHIL % 2.1 % (0.0-4.0); HEMATOCRIT 28.4 % (35.0-46.0); HEMO FLAGS DIFF FINAL; LYMPH % 13.6 % (9.0-44.0); LYMPHOCYTE # 1.2 TH/MM3 (1.0-4.8); MEAN CORPUSCULAR HEMOGLOBIN 28.2 PG (27.0-34.0); MEAN CORPUSCULAR HGB CONC 31.7 % (32.0-36.0); MONO % 6.4 % (0.0-8.0); NEUT % 77.1 % (16.0-70.0); PLATELET COUNT 154 TH/MM3 (150-450); RED BLOOD COUNT 3.19 MIL/MM3 (4.00-5.30); RED CELL DISTRIBUTION WIDTH 16.3 % (11.6-17.2); WHITE BLOOD COUNT 8.8 TH/MM3 (4.0-11.0)
[2017-01-09 06:22] LABS: BICARBONATE 26.2 MEQ/L (21.0-32.0); POTASSIUM 4.5 MEQ/L (3.5-5.1)
[2017-01-09] MEDS: INSULIN ASPART SUPPLEMENTAL SCALE SQ SCH ×4 (06:31→21:39)
[2017-01-09] MEDS: ESCITALOPRAM OXALATE 10 MG TAB PO SCH (08:38)
[2017-01-09] MEDS: QUEtiapine FUMARATE 25 MG TAB PO SCH ×2 (08:39→21:35)
[2017-01-09] MEDS: DABIGATRAN ETEXILATE 75 MG CAP PO SCH (08:39)
[2017-01-09] MEDS: NEBIVOLOL 10 MG TAB PO SCH ×2 (08:39→21:35)
[2017-01-09] MEDS: DOCUSATE SODIUM 50 MG/SENNA 8.6 MG TAB PO SCH ×2 (08:39→21:35)
[2017-01-09] MEDS: SODIUM CHLORIDE 0.9% FLUSH 10 ML FLUSH IV FLUSH SCH ×2 (08:39→21:36)
--- NOTE | 2017-01-09 13:20 | HHI.PR ---
Subjective Remarks Patient was resting when I came in the room. She denies any pain, she is unhappy that I woke her up. Denies any abdominal pain. Does not answer to some of my questions Objective Vitals Vital Signs Date Time Temp Pulse Resp B/P Pulse Ox O2 Delivery O2 Flow Rate FiO2 01/09/17 11:13 100 01/09/17 09:00 81 01/09/17 08:00 98.4 79 20 145/87 100 01/09/17 04:53 98.1 70 18 105/66 97 01/09/17 00:57 98.2 72 18 112/61 97 01/08/17 22:54 81 01/08/17 20:00 100.4 76 20 139/74 95 01/08/17 20:00 88 01/08/17 18:00 70 01/08/17 17:00 68 01/08/17 16:00 99.2 67 20 129/72 99 01/08/17 16:00 64 01/08/17 15:00 60 01/08/17 14:00 50 I/O 01/08/17 01/08/17 01/08/17 01/09/17 01/09/17 01/09/17 07:00 15:00 23:00 07:00 15:00 23:00 Intake Total 620 ml 855 ml Output Total 475 ml 500 ml 700 ml Balance -475 ml 120 ml 155 ml Intake Oral 120 ml IV Total 500 ml 855 ml Output Urine Total 475 ml 500 ml 700 ml # Bowel Movements 1 Result Diagram: 01/09/17 0525 01/09/17 0525 Imaging Last Impressions Head CT 01/07/172000 Signed Impressions: Service Date/Time: Saturday, January 07, 2017 22:09 - CONCLUSION: Slight atrophic and small vessel ischemic changes without any evidence for acute hemorrhage or mass effect. Fidelia Diallo MD Chest X-Ray 01/07/172000 Signed Impressions: Service Date/Time: Saturday, January 07, 2017 20:04 - CONCLUSION: Probable mild pulmonary edema. Fidelia Diallo MD Objective Remarks GENERAL: Well-nourished, well-developed elderly patient in [facility]. Seems more alert today. Lying in hospital bed. Follows some commands. SKIN: Warm and dry. No rash. HEENT: Normocephalic. Atraumatic. EOMI. NECK: Supple. Trachea midline. CARDIOVASCULAR: Regular rate and rhythm. No murmur appreciated. RESPIRATORY: No accessory muscle use. Clear to auscultation. Breath sounds equal bilaterally. GASTROINTESTINAL: Abdomen soft, non-tender, nondistended. Normoactive bowel sounds x4. MUSCULOSKELETAL: No obvious deformities. Extremities without edema. Restraints in place NEUROLOGICAL: Seems more alert today. Able to move all extremities. PSYCHIATRIC: Confused. A/P Problem List: (1) Fall ICD Code: W19.XXXA Status: Acute (2) Sepsis ICD Code: A41.9 Status: Acute (3) UTI (urinary tract infection) ICD Code: N39.0 Status: Acute (4) GUSTAVO (acute kidney injury) ICD Code: N17.9 Status: Acute (5) A-fib ICD Code: I48.91 Status: Acute (6) Dementia ICD Code: F03.90 Status: Acute (7) DM (diabetes mellitus) ICD Code: E11.9 Status: Acute Assessment and Plan 71yo female with dementia, afib on Pradaxa and recently diagnosed ESBL UTI on Ertapenem admitted s/p fall and closed head trauma. Fall Dementia - unwitnessed fall at Rehab, found by staff member, reports +head trauma, no LOC. - CT Head w/ no acute findings. No other injuries noted. -Physical therapy following. -Speech therapy evaluated the patient and recommends a mechanical soft, nectar consistency thickened liquids - continue home medications - case mgmt consulted to assist with discharge planning Sepsis, source ESBL UTI - Temp 100.4, RR 26, HR 107, WBC normal however elevated neutrophil count, on outpatient IV Abx for UTI. - Lactic acid 2.0 - Blood Cultures growing gram-positive cocci and staph coagulase negative. Infectious disease following. Patient on ertapenem - patient now afebrile UTI - Per records, pt currently on Ertapenem 1gm qd for ESBL UTI, started tx on x10 days. - U/a w/ small LE and minimal bacteriuria - culture not indicated. - ID following GUSTAVO - Creatinine 1.83, previously 1.03 on 09/28/15. Improving - continue IVF for hydration - continue to hold Bumex for now. - avoid nephrotoxic agents - am labs to monitor trend A-fib, chronic - rate controlled - Continue home Diltiazem, Amiodarone, Bystolic and Pradaxa DM Hyperglycemia - BS 405 at admission - continue Sliding scale w/ Accu-Cheks. - obtain hgbA1c - BS 165 this am Anemia - hemoglobin 9.6 --> 9.1-->9.0 - no e/o active bleeding - obtain am labs to monitor trend DVT Prophylaxis - Patient is on Pradaxa. Discharge Planning Continue IV antibiotics. Monitor final blood cultures. Infectious disease following, appreciate recommendations. Plan is for d/c to rehab once cleared by ID Problem Qualifiers (1) Fall: Qualified Code: W19.XXXA - Fall, initial encounter (2) Sepsis: Qualified Code: A41.9 - Sepsis, due to unspecified organism Alexa Simon MD Jan 09, 2017 13:20
--- NOTE | 2017-01-09 13:33 | HHI.IDPN ---
Subjective Subjective Remarks Patient is a 71-year-old female, with underlying dementia, was reportedly just recently hospitalized at [facility], and was found to have Escherichia coli UTI. She was supposedly on Invanz. On day of admission patient was found down by a staff member. She had not unwitnessed fall there was apparently no loss of consciousness, and she stated she hit her head. Evaluation in the emergency room, did not show any acute findings on CT of the head. Chest x-ray showed some mild pulmonary edema. Her urinalysis was unremarkable, and a Browne catheter was placed in the emergency room. Temperature since admission was 100.4. Her WBC is normal. Creatinine is elevated at 2.26. Unable to get any review of systems because of her underlying dementia. Notes reviewed No fever Records not available yet Has 2 (+) [facility] DC records showed Invanz started 01/05, plan x 10 days Antibiotics Invanz Lines PICC RUE Past Medical History Depression Hypertension Hyperlipidemia There is mention of CHF Atrial fibrillation Diabetes Glaucoma Dementia UTI Allergies: Coded Allergies: Amoxicillin (Verified Allergy, Intermediate, 01/07/17) Ampicillin (Verified Allergy, Intermediate, 01/07/17) Azithromycin (Verified Allergy, Intermediate, 01/07/17) Reglan (Verified Allergy, Intermediate, 01/07/17) Tylenol (Verified Allergy, Intermediate, 01/07/17) Objective . Vital Signs Date Time Temp Pulse Resp B/P Pulse Ox O2 Delivery O2 Flow Rate FiO2 01/09/17 11:13 100 01/09/17 09:00 81 01/09/17 08:00 98.4 79 20 145/87 100 01/09/17 04:53 98.1 70 18 105/66 97 01/09/17 00:57 98.2 72 18 112/61 97 01/08/17 22:54 81 01/08/17 20:00 100.4 76 20 139/74 95 01/08/17 20:00 88 01/08/17 18:00 70 01/08/17 17:00 68 01/08/17 16:00 99.2 67 20 129/72 99 01/08/17 16:00 64 01/08/17 15:00 60 01/08/17 14:00 50 01/08/17 01/08/17 01/09/17 15:00 23:00 07:00 Intake Total 620 ml 855 ml Output Total 500 ml 700 ml Balance 120 ml 155 ml Intake Oral 120 ml IV Total 500 ml 855 ml Output Urine Total 500 ml 700 ml # Bowel Movements 1 . Laboratory Tests Test 01/07/17 01/08/17 01/09/17 20:20 04:09 05:25 White Blood Count 9.2 TH/MM3 9.5 TH/MM3 8.8 TH/MM3 Red Blood Count 3.39 MIL/MM3 3.19 MIL/MM3 3.19 MIL/MM3 Hemoglobin 9.6 GM/DL 9.1 GM/DL 9.0 GM/DL Hematocrit 29.9 % 27.9 % 28.4 % Mean Corpuscular Volume 88.2 FL 87.6 FL 89.0 FL Mean Corpuscular Hemoglobin 28.4 PG 28.5 PG 28.2 PG Mean Corpuscular Hemoglobin 32.2 % 32.6 % 31.7 % Concent Red Cell Distribution Width 15.7 % 15.9 % 16.3 % Platelet Count 179 TH/MM3 156 TH/MM3 154 TH/MM3 Mean Platelet Volume 8.2 FL 8.3 FL 8.1 FL Neutrophils (%) (Auto) % 69.5 % 77.1 % Lymphocytes (%) (Auto) % 17.3 % 13.6 % Monocytes (%) (Auto) % 9.3 % 6.4 % Eosinophils (%) (Auto) % 2.6 % 2.1 % Basophils (%) (Auto) % 1.3 % 0.8 % Neutrophils # (Auto) TH/MM3 6.6 TH/MM3 6.8 TH/MM3 Lymphocytes # (Auto) TH/MM3 1.6 TH/MM3 1.2 TH/MM3 Monocytes # (Auto) TH/MM3 0.9 TH/MM3 0.6 TH/MM3 Eosinophils # (Auto) TH/MM3 0.2 TH/MM3 0.2 TH/MM3 Basophils # (Auto) TH/MM3 0.1 TH/MM3 0.1 TH/MM3 CBC Comment AUTO DIFF DIFF FINAL DIFF FINAL Differential Total Cells 100 Counted Neutrophils % (Manual) 79 % Lymphocytes % 11 % Monocytes % 6 % Eosinophils % 3 % Basophils % 1 % Neutrophils # (Manual) 7.3 TH/MM3 Differential Comment FINAL DIFF MANUAL Platelet Estimate NORMAL Platelet Morphology Comment NORMAL Red Cell Morphology Comment NORMAL Laboratory Tests Test 01/07/17 01/08/17 01/09/17 20:20 04:09 05:25 Sodium Level 139 MEQ/L 145 MEQ/L 141 MEQ/L Potassium Level 3.9 MEQ/L 4.0 MEQ/L 4.5 MEQ/L Chloride Level 100 MEQ/L 107 MEQ/L 106 MEQ/L Carbon Dioxide Level 32.1 MEQ/L 31.9 MEQ/L 26.2 MEQ/L Anion Gap 7 MEQ/L 6 MEQ/L 9 MEQ/L Blood Urea Nitrogen 52 MG/DL 54 MG/DL 43 MG/DL Creatinine 2.26 MG/DL 2.04 MG/DL 1.83 MG/DL Estimat Glomerular Filtration 21 ML/MIN 24 ML/MIN 27 ML/MIN Rate Random Glucose 328 MG/DL 61 MG/DL 165 MG/DL Lactic Acid Level 2.0 mmol/L Calcium Level 7.9 MG/DL 7.8 MG/DL 7.8 MG/DL Magnesium Level 1.8 MG/DL Total Bilirubin 0.3 MG/DL 0.3 MG/DL Aspartate Amino Transf 10 U/L 10 U/L (AST/SGOT) Alanine Aminotransferase 15 U/L 12 U/L (ALT/SGPT) Alkaline Phosphatase 100 U/L 80 U/L B-Type Natriuretic Peptide 493 PG/ML Total Protein 6.7 GM/DL 6.5 GM/DL Albumin 2.3 GM/DL 2.2 GM/DL Hemoglobin A1c 8.2 % Microbiology Date/Time Procedure Status Source Growth 01/07/17 20:15 Aerobic Blood Culture - Preliminary Resulted Blood Peripheral Staph Sp Coagulase Negative 01/07/17 20:15 Anaerobic Blood Culture - Preliminary Resulted Staph Sp Coagulase Negative 01/07/17 20:20 Aerobic Blood Culture - Preliminary Resulted Blood Peripheral NO GROWTH IN 2 DAYS 01/07/17 20:20 Anaerobic Blood Culture - Preliminary Resulted Gram Positive Cocci Imaging Head CT 01/07/172000 Signed Impressions: Service Date/Time: Saturday, January 07, 2017 22:09 - CONCLUSION: Slight atrophic and small vessel ischemic changes without any evidence for acute hemorrhage or mass effect. Fidelia Diallo MD Chest X-Ray 01/07/172000 Signed Impressions: Service Date/Time: Saturday, January 07, 2017 20:04 - CONCLUSION: Probable mild pulmonary edema. Fidelia Diallo MD Physical Exam GENERAL: Awakens easily, not in respiratory distress. SKIN: Warm and dry. No generalized rash, no ecchymoses and no evidence of embolic lesions. HEAD: Atraumatic. Normocephalic. No temporal wasting, or tenderness. EYES: [place] conjunctiva. No petechia or hemorrhage. Pupils equal, round and reactive to light. Extraocular movements full and intact. No scleral icterus. No injection or drainage. EARS, NOSE AND THROAT: Nose without bleeding or purulent nasal discharge. No sinus tenderness. Mucous membranes pink and moist. No oral lesions noted. NECK: Trachea midline. Supple and not tender, no meningeal signs CARDIOVASCULAR: Regular rate and rhythm. No murmurs, rubs or gallops heard RESPIRATORY: Clear to auscultation. Breath sounds equal bilaterally. No rales , wheezing or rhonchi ABDOMEN: Soft, non-tender, nondistended. Bowel sounds present and normoactive. No guarding. No rebound. No organomegaly. EXTREMITIES: No clubbing, cyanosis, or edema. No calf tenderness. Well perfused and warm. NEUROLOGICAL: Awakens easily PSYCHIATRIC: Normal affect, calm and cooperative. LINE: PICC no evidence of infection : Browne in place, urine looks clear Assessment & Plan Remarks IMPRESSION Recent Dx of UTI with E coli ESBL (+) - no browne - [place]z in the [place] S/P fall, CT head negative Dementia Low grade temps Renal insufficiency (+) BC RECOMMENDATION Await records from [facility] Continue Invanz Repeat BC May need to remove PICC Monitor temps Follow C/S Monitor progress Jeniffer Eubanks MD Jan 09, 2017 13:33
--- NOTE | 2017-01-09 14:13 | EKG ---
Date Performed: 01/07/2017 Time Performed: 20:32:26 PTAGE: 71 years EKG: ATRIAL FIBRILLATION INCOMPLETE RIGHT BUNDLE BRANCH BLOCK POSSIBLE INFERIOR MYOCARDIAL INFAR CTION Compared to previous tracing the patient is now in atrial fibrillation ABNORMAL RHYTHM ECG PREVIOUS TRACING : 09/24/2015 17.58 DOCTOR: Enzo Aguilera Interpretating Date/Time 01/09/2017 14:12:35
[2017-01-09] MEDS: ERTAPENEM 500 MG/NS 50 ML IV SCH ×2 (17:05)
[2017-01-09 17:26] LABS: MEAN CELL VOLUME 88.2 FL (80.0-100.0); MEAN CORPUSCULAR HEMOGLOBIN 28.4 PG (27.0-34.0); MEAN CORPUSCULAR HGB CONC 32.2 % (32.0-36.0); PLATELET COUNT 173 TH/MM3 (150-450); RED BLOOD COUNT 3.18 MIL/MM3 (4.00-5.30); RED CELL DISTRIBUTION WIDTH 16.3 % (11.6-17.2); REVIEW FLAG FINAL; WHITE BLOOD COUNT 7.5 TH/MM3 (4.0-11.0)
[2017-01-09 17:45] LABS: APTT (PATIENT) 40.1 SEC (24.3-30.1); INTERNATIONAL NORMALIZED RATIO 1.2 RATIO; PROTHROMBIN TIME - PATIENT 13.2 SEC (9.8-11.6)
[2017-01-09 23:49] LABS: APTT (PATIENT) 40.4 SEC (24.3-30.1)
[2017-01-10] VITALS (8 sets, daily range): BP systolic 125–160; BP diastolic 61–88; PULSE 63–92; RESP 18–22; TEMP 97.3–97.8; O2SAT 93–100
[2017-01-10] MEDS: DILTIAZEM HCL 60 MG TAB PO SCH ×5 (00:17→23:36)
[2017-01-10] MEDS: SODIUM CHLOR 0.9% 1000 ML INJ 1,000 ML IV SCH ×3 (00:18→19:45)
[2017-01-10] MEDS: HEPARIN-D5W INJ 250 ML IV SCH ×2 (00:22→23:42)
[2017-01-10] MEDS: AMIODARONE 200 MG TAB PO SCH ×3 (05:55→23:36)
[2017-01-10] MEDS: INSULIN ASPART SUPPLEMENTAL SCALE SQ SCH ×4 (06:08→19:57)
[2017-01-10] MEDS: ESCITALOPRAM OXALATE 10 MG TAB PO SCH (08:57)
[2017-01-10] MEDS: QUEtiapine FUMARATE 25 MG TAB PO SCH ×2 (08:57→19:46)
[2017-01-10] MEDS: DOCUSATE SODIUM 50 MG/SENNA 8.6 MG TAB PO SCH ×2 (08:57→19:46)
[2017-01-10] MEDS: NEBIVOLOL 10 MG TAB PO SCH ×2 (08:57→19:46)
[2017-01-10] MEDS: SODIUM CHLORIDE 0.9% FLUSH 10 ML FLUSH IV FLUSH SCH ×2 (08:58→19:45)
[2017-01-10 09:12] LABS: APTT (PATIENT) 42.8 SEC (24.3-30.1)
[2017-01-10] MEDS ORDERED: RESP: ALBUTEROL 2.5 MG/IPRATROPIUM 0.5 MG NEB (PRN) NEB (10:00)
--- NOTE | 2017-01-10 13:16 | HHI.IDPN ---
Subjective Subjective Remarks Patient is a 71-year-old female, with underlying dementia, was reportedly just recently hospitalized at [facility], and was found to have Escherichia coli UTI. She was supposedly on Invanz. On day of admission patient was found down by a staff member. She had not unwitnessed fall there was apparently no loss of consciousness, and she stated she hit her head. Evaluation in the emergency room, did not show any acute findings on CT of the head. Chest x-ray showed some mild pulmonary edema. Her urinalysis was unremarkable, and a Browne catheter was placed in the emergency room. Temperature since admission was 100.4. Her WBC is normal. Creatinine is elevated at 2.26. Unable to get any review of systems because of her underlying dementia. Notes reviewed No fever One BC with Staph simulans Other BC no ID yet Repeat BC negative Antibiotics Invanz Lines PICC RUE Past Medical History Depression Hypertension Hyperlipidemia There is mention of CHF Atrial fibrillation Diabetes Glaucoma Dementia UTI Allergies: Coded Allergies: Amoxicillin (Verified Allergy, Intermediate, 01/07/17) Ampicillin (Verified Allergy, Intermediate, 01/07/17) Azithromycin (Verified Allergy, Intermediate, 01/07/17) Reglan (Verified Allergy, Intermediate, 01/07/17) Tylenol (Verified Allergy, Intermediate, 01/07/17) Objective . Vital Signs Date Time Temp Pulse Resp B/P Pulse Ox O2 Delivery O2 Flow Rate FiO2 01/10/17 12:00 97.7 92 18 134/76 94 01/10/17 11:17 96 Nasal Cannula 3.00 01/10/17 08:00 97.3 63 18 149/73 93 01/10/17 05:00 97.4 66 22 134/80 100 01/10/17 00:00 97.4 71 20 129/88 98 01/09/17 20:00 61 01/09/17 20:00 Room Air 01/09/17 19:30 98.6 58 18 123/60 95 01/09/17 16:00 Room Air 01/09/17 16:00 98.2 80 18 150/70 94 01/09/17 01/09/17 01/10/17 15:00 23:00 07:00 Intake Total 360 ml 961 ml 1053 ml Output Total 500 ml 125 ml 150 ml Balance -140 ml 836 ml 903 ml Intake Oral 360 ml IV Total 961 ml 1053 ml Output Urine Total 500 ml 125 ml 150 ml # Bowel Movements 1 1 0 . Laboratory Tests Test 01/09/17 01/09/17 05:25 16:49 White Blood Count 8.8 TH/MM3 7.5 TH/MM3 Red Blood Count 3.19 MIL/MM3 3.18 MIL/MM3 Hemoglobin 9.0 GM/DL 9.0 GM/DL Hematocrit 28.4 % 28.0 % Mean Corpuscular Volume 89.0 FL 88.2 FL Mean Corpuscular Hemoglobin 28.2 PG 28.4 PG Mean Corpuscular Hemoglobin 31.7 % 32.2 % Concent Red Cell Distribution Width 16.3 % 16.3 % Platelet Count 154 TH/MM3 173 TH/MM3 Mean Platelet Volume 8.1 FL 8.4 FL Neutrophils (%) (Auto) 77.1 % Lymphocytes (%) (Auto) 13.6 % Monocytes (%) (Auto) 6.4 % Eosinophils (%) (Auto) 2.1 % Basophils (%) (Auto) 0.8 % Neutrophils # (Auto) 6.8 TH/MM3 Lymphocytes # (Auto) 1.2 TH/MM3 Monocytes # (Auto) 0.6 TH/MM3 Eosinophils # (Auto) 0.2 TH/MM3 Basophils # (Auto) 0.1 TH/MM3 CBC Comment DIFF FINAL Differential Comment Laboratory Tests Test 01/09/17 05:25 Sodium Level 141 MEQ/L Potassium Level 4.5 MEQ/L Chloride Level 106 MEQ/L Carbon Dioxide Level 26.2 MEQ/L Anion Gap 9 MEQ/L Blood Urea Nitrogen 43 MG/DL Creatinine 1.83 MG/DL Estimat Glomerular Filtration 27 ML/MIN Rate Random Glucose 165 MG/DL Calcium Level 7.8 MG/DL Microbiology Date/Time Procedure Status Source Growth 01/07/17 20:15 Aerobic Blood Culture - Final Complete Blood Peripheral Staphylococcus Simulans 01/07/17 20:15 Anaerobic Blood Culture - Final Complete Staph Sp Coagulase Negative 01/07/17 20:20 Aerobic Blood Culture - Preliminary Resulted Blood Peripheral Gram Positive Cocci 01/07/17 20:20 Anaerobic Blood Culture - Preliminary Resulted Staph Sp Coagulase Negative 01/09/17 13:40 Aerobic Blood Culture - Preliminary Resulted Blood Other NO GROWTH IN 1 DAY 01/09/17 13:40 Anaerobic Blood Culture - Preliminary Resulted Blood Other NO GROWTH IN 1 DAY 01/09/17 14:49 Aerobic Blood Culture - Preliminary Resulted Blood Peripheral NO GROWTH IN 1 DAY 01/09/17 14:49 Anaerobic Blood Culture - Preliminary Resulted Blood Peripheral NO GROWTH IN 1 DAY 01/10/17 01:15 Stool Occult Blood (ROBERT) - Final Complete Stool Stool HEMOCCULT NEGATIVE Imaging Head CT 01/07/172000 Signed Impressions: Service Date/Time: Saturday, January 07, 2017 22:09 - CONCLUSION: Slight atrophic and small vessel ischemic changes without any evidence for acute hemorrhage or mass effect. Fidelia Diallo MD Chest X-Ray 01/07/172000 Signed Impressions: Service Date/Time: Saturday, January 07, 2017 20:04 - CONCLUSION: Probable mild pulmonary edema. Fidelia Diallo MD Physical Exam GENERAL: Awake and alert, not in respiratory distress. SKIN: Warm and dry. No generalized rash, no ecchymoses and no evidence of embolic lesions. HEAD: Atraumatic. Normocephalic. No temporal wasting, or tenderness. EYES: [place] conjunctiva. No petechia or hemorrhage. No scleral icterus. No injection or drainage. EARS, NOSE AND THROAT: Nose without bleeding or purulent nasal discharge. No sinus tenderness. Mucous membranes pink and moist. NECK: Trachea midline. Supple and not tender, no meningeal signs CARDIOVASCULAR: Regular rate and rhythm. No murmurs, rubs or gallops heard RESPIRATORY: Clear to auscultation. Breath sounds equal bilaterally. No rales , wheezing or rhonchi ABDOMEN: Soft, non-tender, nondistended. Bowel sounds present and normoactive. No guarding. No rebound. No organomegaly. EXTREMITIES: No clubbing, cyanosis, or edema. No calf tenderness. Well perfused and warm. NEUROLOGICAL: Awakens easily PSYCHIATRIC: Normal affect, calm and cooperative. LINE: PICC no evidence of infection : Browne in place, urine looks clear Assessment & Plan Remarks IMPRESSION Recent Dx of UTI with E coli ESBL (+) - no browne - on Invanz in the [place] S/P fall, CT head negative Dementia Low grade temps Renal insufficiency (+) BC RECOMMENDATION Continue Invanz - give last dose tomorrow (7 days) Follow BC Monitor temps Follow C/S Monitor progress If stable and no new (+) BC, possible D/C back to [place] tomorrow Jeniffer Eubanks MD Jan 10, 2017 13:16
--- NOTE | 2017-01-10 16:59 | HHI.PR ---
Subjective Remarks Patient's answers with yes or no. Denies any chest pain, shortness of breath, nausea or vomiting. She keeps her eyes closed but briefly opens them. Objective Vitals Vital Signs Date Time Temp Pulse Resp B/P Pulse Ox O2 Delivery O2 Flow Rate FiO2 01/10/17 16:00 97.8 85 18 125/61 96 01/10/17 12:00 97.7 92 18 134/76 94 01/10/17 11:17 96 Nasal Cannula 3.00 01/10/17 08:00 Nasal Cannula 2.00 01/10/17 08:00 97.3 63 18 149/73 93 01/10/17 05:00 97.4 66 22 134/80 100 01/10/17 00:00 97.4 71 20 129/88 98 01/09/17 20:00 61 01/09/17 20:00 Room Air 01/09/17 19:30 98.6 58 18 123/60 95 I/O 01/09/17 01/09/17 01/09/17 01/10/17 01/10/17 01/10/17 07:00 15:00 23:00 07:00 15:00 23:00 Intake Total 855 ml 360 ml 961 ml 1053 ml 240 ml Output Total 700 ml 500 ml 125 ml 150 ml 400 ml Balance 155 ml -140 ml 836 ml 903 ml -160 ml Intake Oral 360 ml 240 ml IV Total 855 ml 961 ml 1053 ml Output Urine Total 700 ml 500 ml 125 ml 150 ml 400 ml # Bowel Movements 1 1 0 1 Result Diagram: 01/09/17 1649 01/09/17 0525 Imaging Last Impressions Head CT 01/07/172000 Signed Impressions: Service Date/Time: Saturday, January 07, 2017 22:09 - CONCLUSION: Slight atrophic and small vessel ischemic changes without any evidence for acute hemorrhage or mass effect. Fidelia Diallo MD Chest X-Ray 01/07/172000 Signed Impressions: Service Date/Time: Saturday, January 07, 2017 20:04 - CONCLUSION: Probable mild pulmonary edema. Fidelia Diallo MD Objective Remarks GENERAL: Well-nourished, well-developed elderly patient in NAD. Seems more alert today but only answers with yes or no at this time. She chooses to keep her eyes closed but briefly opens them. SKIN: Warm and dry. No rash. HEENT: Normocephalic. Atraumatic. EOMI. NECK: Supple. Trachea midline. CARDIOVASCULAR: Regular rate and rhythm. No murmur appreciated. RESPIRATORY: No accessory muscle use. Clear to auscultation. Breath sounds equal bilaterally. GASTROINTESTINAL: Abdomen soft, non-tender, nondistended. Normoactive bowel sounds x4. MUSCULOSKELETAL: No obvious deformities. Extremities without edema. Restraints in place NEUROLOGICAL: Seems more alert today. Able to move all extremities. PSYCHIATRIC: Confused. Restraints still in place A/P Problem List: (1) Fall ICD Code: W19.XXXA Status: Acute (2) Sepsis ICD Code: A41.9 Status: Acute (3) UTI (urinary tract infection) ICD Code: N39.0 Status: Acute (4) GUSTAVO (acute kidney injury) ICD Code: N17.9 Status: Acute (5) A-fib ICD Code: I48.91 Status: Acute (6) Dementia ICD Code: F03.90 Status: Acute (7) DM (diabetes mellitus) ICD Code: E11.9 Status: Acute Assessment and Plan 71yo female with dementia, afib on Pradaxa and recently diagnosed ESBL UTI on Ertapenem admitted s/p fall and closed head trauma. Fall Dementia - unwitnessed fall at Rehab, found by staff member, reports +head trauma, no LOC. - CT Head w/ no acute findings. No other injuries noted. -Physical therapy following. -Speech therapy evaluated the patient and recommends a mechanical soft, nectar consistency thickened liquids - continue home medications - case mgmt consulted to assist with discharge planning. Discussed with RN, will try to keep her off restraints and see how she does overnight. Sepsis, source ESBL UTI - Temp 100.4, RR 26, HR 107, WBC normal however elevated neutrophil count, on outpatient IV Abx for UTI. - Lactic acid 2.0 - Blood Cultures growing gram-positive cocci and staph coagulase negative. Infectious disease following. Patient on ertapenem. Give last dose of Invanz tomorrow (7 days). If patient stable and no new (+) BC, possible D/C back to [place] tomorrow - patient now afebrile UTI - Per records, pt currently on Ertapenem 1gm qd for ESBL UTI - U/a w/ small LE and minimal bacteriuria - culture not indicated. - ID following GUSTAVO - Creatinine 1.83, previously 1.03 on 09/28/15. Improving - continue IVF for hydration - continue to hold Bumex for now. - avoid nephrotoxic agents - am labs to monitor trend A-fib, chronic - rate controlled - Continue home Diltiazem, Amiodarone, Bystolic and hold Pradaxa. I got a page from pharmacy yesterday. Because pt's CrCl is <30, the recommendation is to hold pradaxa as pt is on amiodarone. on heparin gtt at midnight >12 since last dose of pradaxa and cover pt that way until her CrCl is >30. Appreciate assistance from pharmacy DM Hyperglycemia - BS 405 at admission - continue Sliding scale w/ Accu-Cheks. - obtain hgbA1c - BS 165 this am Anemia - hemoglobin 9.6 --> 9.1-->9.0 - no e/o active bleeding - obtain am labs to monitor trend DVT Prophylaxis - heparin Discharge Planning Continue IV antibiotics until tomorrow, if repeat BC neg, may be d/c tomorrow as long as Cr trending down and CrCl >30 to be able to resume pradaxa. Infectious disease following, appreciate recommendations. Pt will be d/c to rehab d/c pavan Problem Qualifiers (1) Fall: Qualified Code: W19.XXXA - Fall, initial encounter (2) Sepsis: Qualified Code: A41.9 - Sepsis, due to unspecified organism Alexa Simon MD Jan 10, 2017 16:58
[2017-01-10] MEDS: ERTAPENEM 500 MG/NS 50 ML IV SCH ×2 (18:30)
[2017-01-11] VITALS: BP 147/66; PULSE 70; RESP 19; TEMP 97.6; O2SAT 98
[2017-01-11 00:26] LABS: APTT (PATIENT) 34.3 SEC (24.3-30.1)
[2017-01-11 04:00] VITALS: BP 137/65; PULSE 68; RESP 21; TEMP 98.4; O2SAT 94
[2017-01-11] MEDS: DILTIAZEM HCL 60 MG TAB PO SCH ×3 (05:04→17:22)
[2017-01-11] MEDS: AMIODARONE 200 MG TAB PO SCH ×2 (05:04→13:45)
[2017-01-11] MEDS: SODIUM CHLOR 0.9% 1000 ML INJ 1,000 ML IV SCH ×2 (05:57→17:00)
[2017-01-11] MEDS: INSULIN ASPART SUPPLEMENTAL SCALE SQ SCH ×3 (06:05→17:20)
[2017-01-11 06:50] LABS: HEMATOCRIT 28.3 % (35.0-46.0); MEAN CELL VOLUME 88.6 FL (80.0-100.0); MEAN CORPUSCULAR HEMOGLOBIN 28.8 PG (27.0-34.0); MEAN CORPUSCULAR HGB CONC 32.5 % (32.0-36.0); PLATELET COUNT 172 TH/MM3 (150-450); RED CELL DISTRIBUTION WIDTH 16.8 % (11.6-17.2)
[2017-01-11 07:03] LABS: APTT (PATIENT) 39.4 SEC (24.3-30.1); HEMO FLAGS AUTO DIFF
[2017-01-11 07:13] LABS: POTASSIUM 4.3 MEQ/L (3.5-5.1)
[2017-01-11 08:00] VITALS: BP 149/65; PULSE 72; RESP 20; TEMP 97.8; O2SAT 94
[2017-01-11 08:46] LABS: BASOPHILS 1 % (0-2); EOSINOPHILS 3 % (0-4); NEUTROPHIL # MANUAL DIFF 7.6 TH/MM3 (1.8-7.7); OVALOCYTES 1+ (NORMAL); PLATELET ESTIMATE SMEAR NORMAL (NORMAL); PLATELET MORPHOLOGY NORMAL (NORMAL); POLYS (SEG NEUTROPHILS) 84 % (16-70); SCAN/DIFF FINAL DIFF MANUAL; WBC DIFF SAMPLE 100
[2017-01-11] MEDS: SODIUM CHLORIDE 0.9% FLUSH 10 ML FLUSH IV FLUSH SCH (09:00)
[2017-01-11] MEDS: NEBIVOLOL 10 MG TAB PO SCH (10:25)
[2017-01-11] MEDS: QUEtiapine FUMARATE 25 MG TAB PO SCH (10:25)
[2017-01-11] MEDS: ESCITALOPRAM OXALATE 10 MG TAB PO SCH (10:26)
[2017-01-11] MEDS: DOCUSATE SODIUM 50 MG/SENNA 8.6 MG TAB PO SCH (10:26)
[2017-01-11 12:00] VITALS: BP 140/74; PULSE 86; RESP 20; TEMP 97.3; O2SAT 96
--- NOTE | 2017-01-11 12:49 | HHI.IDPN ---
Subjective Subjective Remarks Patient is a 71-year-old female, with underlying dementia, was reportedly just recently hospitalized at [place], and was found to have Escherichia coli UTI. She was supposedly on Invanz. On day of admission patient was found down by a staff member. She had not unwitnessed fall there was apparently no loss of consciousness, and she stated she hit her head. Evaluation in the emergency room, did not show any acute findings on CT of the head. Chest x-ray showed some mild pulmonary edema. Her urinalysis was unremarkable, and a Browne catheter was placed in the emergency room. Temperature since admission was 100.4. Her WBC is normal. Creatinine is elevated at 2.26. Unable to get any review of systems because of her underlying dementia. Notes reviewed No fever One BC with Staph simulans Other BC with Staph epi Repeat BC negative Swallowing eval noted Antibiotics Invanz Lines PICC RUE Past Medical History Depression Hypertension Hyperlipidemia There is mention of CHF Atrial fibrillation Diabetes Glaucoma Dementia UTI Allergies: Coded Allergies: Amoxicillin (Verified Allergy, Intermediate, 01/07/17) Ampicillin (Verified Allergy, Intermediate, 01/07/17) Azithromycin (Verified Allergy, Intermediate, 01/07/17) Reglan (Verified Allergy, Intermediate, 01/07/17) Tylenol (Verified Allergy, Intermediate, 01/07/17) Objective . Vital Signs Date Time Temp Pulse Resp B/P Pulse Ox O2 Delivery O2 Flow Rate FiO2 01/11/17 08:00 97.8 72 20 149/65 94 01/11/17 04:00 98.4 68 21 137/65 94 01/11/17 00:00 97.6 70 19 147/66 98 01/10/17 21:00 Nasal Cannula 2.00 01/10/17 20:00 70 01/10/17 20:00 97.8 73 21 160/80 96 01/10/17 16:00 97.8 85 18 125/61 96 01/10/17 01/10/17 01/11/17 14:59 22:59 06:59 Intake Total 240 ml 2837 ml 100 ml Output Total 400 ml 100 ml 340 ml Balance -160 ml 2737 ml -240 ml Intake Oral 240 ml 120 ml 100 ml IV Total 2717 ml Output Urine Total 400 ml 100 ml 340 ml # Bowel Movements 1 1 1 . Laboratory Tests Test 01/09/17 01/11/17 16:49 06:30 White Blood Count 7.5 TH/MM3 9.0 TH/MM3 Red Blood Count 3.18 MIL/MM3 3.20 MIL/MM3 Hemoglobin 9.0 GM/DL 9.2 GM/DL Hematocrit 28.0 % 28.3 % Mean Corpuscular Volume 88.2 FL 88.6 FL Mean Corpuscular Hemoglobin 28.4 PG 28.8 PG Mean Corpuscular Hemoglobin 32.2 % 32.5 % Concent Red Cell Distribution Width 16.3 % 16.8 % Platelet Count 173 TH/MM3 172 TH/MM3 Mean Platelet Volume 8.4 FL 8.5 FL Neutrophils (%) (Auto) % Lymphocytes (%) (Auto) % Monocytes (%) (Auto) % Eosinophils (%) (Auto) % Basophils (%) (Auto) % Neutrophils # (Auto) TH/MM3 Lymphocytes # (Auto) TH/MM3 Monocytes # (Auto) TH/MM3 Eosinophils # (Auto) TH/MM3 Basophils # (Auto) TH/MM3 CBC Comment AUTO DIFF Differential Total Cells 100 Counted Neutrophils % (Manual) 84 % Lymphocytes % 9 % Monocytes % 3 % Eosinophils % 3 % Basophils % 1 % Neutrophils # (Manual) 7.6 TH/MM3 Differential Comment FINAL DIFF MANUAL Platelet Estimate NORMAL Platelet Morphology Comment NORMAL Ovalocytes 1+ Laboratory Tests Test 01/11/17 06:30 Sodium Level 141 MEQ/L Potassium Level 4.3 MEQ/L Chloride Level 108 MEQ/L Carbon Dioxide Level 25.0 MEQ/L Anion Gap 8 MEQ/L Blood Urea Nitrogen 36 MG/DL Creatinine 1.67 MG/DL Estimat Glomerular Filtration 30 ML/MIN Rate Random Glucose 208 MG/DL Calcium Level 7.9 MG/DL Microbiology Date/Time Procedure Status Source Growth 01/09/17 13:40 Aerobic Blood Culture - Preliminary Resulted Blood Other NO GROWTH IN 2 DAYS 01/09/17 13:40 Anaerobic Blood Culture - Preliminary Resulted Blood Other NO GROWTH IN 2 DAYS 01/09/17 14:49 Aerobic Blood Culture - Preliminary Resulted Blood Peripheral NO GROWTH IN 2 DAYS 01/09/17 14:49 Anaerobic Blood Culture - Preliminary Resulted Blood Peripheral NO GROWTH IN 2 DAYS 01/10/17 01:15 Stool Occult Blood (ROBERT) - Final Complete Stool Stool HEMOCCULT NEGATIVE Imaging Head CT 01/07/172000 Signed Impressions: Service Date/Time: Saturday, January 07, 2017 22:09 - CONCLUSION: Slight atrophic and small vessel ischemic changes without any evidence for acute hemorrhage or mass effect. Fidelia Diallo MD Chest X-Ray 01/07/172000 Signed Impressions: Service Date/Time: Saturday, January 07, 2017 20:04 - CONCLUSION: Probable mild pulmonary edema. Fidelia Diallo MD Physical Exam GENERAL: Awake and alert, not in respiratory distress. SKIN: Warm and dry. No generalized rash, no ecchymoses and no evidence of embolic lesions. HEAD: Atraumatic. Normocephalic. No temporal wasting, or tenderness. EYES: [place] conjunctiva. No petechia or hemorrhage. No scleral icterus. No injection or drainage. EARS, NOSE AND THROAT: Nose without bleeding or purulent nasal discharge. No sinus tenderness. Mucous membranes pink and moist. NECK: Trachea midline. Supple and not tender, no meningeal signs CARDIOVASCULAR: Regular rate and rhythm. No murmurs, rubs or gallops heard RESPIRATORY: Clear to auscultation. Breath sounds equal bilaterally. No rales , wheezing or rhonchi ABDOMEN: Soft, non-tender, nondistended. Bowel sounds present and normoactive. No guarding. No rebound. No organomegaly. EXTREMITIES: No clubbing, cyanosis, or edema. No calf tenderness. Well perfused and warm. NEUROLOGICAL: Awakens easily PSYCHIATRIC: Normal affect, calm and cooperative. LINE: PICC no evidence of infection : Browne in place, urine looks clear Assessment & Plan Remarks IMPRESSION Recent Dx of UTI with E coli ESBL (+) - no browne - on Invanz in the [place] S/P fall, CT head negative Dementia Low grade temps, resolved Renal insufficiency (+) BC, C/W contamination RECOMMENDATION Give last dose on Invanz today If stable ok to D/C back to SNF Remove PICC prior to D/C I will be available prn Please call if with any new ID issue or question Jeniffer Eubanks MD Jan 11, 2017 12:49
[2017-01-11 13:14] LABS: APTT (PATIENT) 46.2 SEC (24.3-30.1)
--- NOTE | 2017-01-11 13:32 | HHI.PR ---
Subjective Remarks IN BED, APPEARS SLEEPY AND LETHARGIC HOWEVER ABLE TO ANSWER QUESTIONS AND FOLLOW COMMANDS. pER NURSE HE WAS NOTED MORE ALERT EARLIER TODAY. PATIENT WAS ALSO NOTED DESSATING IN 80S EARLIER. SHE RECEIVED DUONEBS AND o2 SAT BACK TO NORMAL. PATIENT DENIES HAVING ANY SOB AT THIS TIME./ NO N/V/D/C. NO COUGH NO WHEEZING. Objective Vitals Vital Signs Date Time Temp Pulse Resp B/P Pulse Ox O2 Delivery O2 Flow Rate FiO2 01/11/17 12:00 97.3 86 20 140/74 96 01/11/17 08:00 97.8 72 20 149/65 94 01/11/17 04:00 98.4 68 21 137/65 94 01/11/17 00:00 97.6 70 19 147/66 98 01/10/17 21:00 Nasal Cannula 2.00 01/10/17 20:00 70 01/10/17 20:00 97.8 73 21 160/80 96 01/10/17 16:00 97.8 85 18 125/61 96 I/O 01/10/17 01/10/17 01/10/17 01/11/17 01/11/17 01/11/17 07:00 15:00 23:00 07:00 15:00 23:00 Intake Total 1053 ml 240 ml 2837 ml 100 ml Output Total 150 ml 400 ml 100 ml 340 ml Balance 903 ml -160 ml 2737 ml -240 ml Intake Oral 240 ml 120 ml 100 ml IV Total 1053 ml 2717 ml Output Urine Total 150 ml 400 ml 100 ml 340 ml # Bowel Movements 0 1 1 1 Result Diagram: 01/11/17 0630 01/11/17 0630 Imaging Last Impressions Head CT 01/07/172000 Signed Impressions: Service Date/Time: Saturday, January 07, 2017 22:09 - CONCLUSION: Slight atrophic and small vessel ischemic changes without any evidence for acute hemorrhage or mass effect. Fidelia Diallo MD Chest X-Ray 01/07/172000 Signed Impressions: Service Date/Time: Saturday, January 07, 2017 20:04 - CONCLUSION: Probable mild pulmonary edema. Fidelia Diallo MD Objective Remarks GENERAL: Well-nourished, well-developed elderly patient in NAD. She chooses to keep her eyes closed but briefly opens them. Follows some commands. NECK: Supple. Trachea midline. CARDIOVASCULAR: Regular rate and rhythm. No murmur appreciated. RESPIRATORY: No accessory muscle use. Clear to auscultation. Breath sounds equal bilaterally. GASTROINTESTINAL: Abdomen soft, non-tender, nondistended. Normoactive bowel sounds x4. MUSCULOSKELETAL: No obvious deformities. Extremities without edema. Restraints in place NEUROLOGICAL: Seems more alert today. Able to move all extremities. PSYCHIATRIC: Confused. Restraints still in place A/P Problem List: (1) Fall ICD Code: W19.XXXA Status: Acute (2) Sepsis ICD Code: A41.9 Status: Acute (3) UTI (urinary tract infection) ICD Code: N39.0 Status: Acute (4) GUSTAVO (acute kidney injury) ICD Code: N17.9 Status: Acute (5) A-fib ICD Code: I48.91 Status: Acute (6) Dementia ICD Code: F03.90 Status: Acute (7) DM (diabetes mellitus) ICD Code: E11.9 Status: Acute Assessment and Plan 71yo female with dementia, afib on Pradaxa and recently diagnosed ESBL UTI on Ertapenem admitted s/p fall and closed head trauma. Noted with sob in the morning 01/11. dessatng in 80s, she received nebs and saturations improved. Give O2 by NC keep O2 sat > 92%. Fall Dementia - unwitnessed fall at Rehab, found by staff member, reports +head trauma, no LOC. - CT Head w/ no acute findings. No other injuries noted. -Physical therapy following. -Speech therapy evaluated the patient and recommends a mechanical soft, nectar consistency thickened liquids - continue home medications - case mgmt consulted to assist with discharge planning. Discussed with RN, will try to keep her off restraints and see how she does overnight. Sepsis, source ESBL UTI - Temp 100.4, RR 26, HR 107, WBC normal however elevated neutrophil count, on outpatient IV Abx for UTI. - Lactic acid 2.0 - Blood Cultures growing gram-positive cocci and staph coagulase negative. Infectious disease following. Patient on ertapenem. Give last dose of Invanz is 01/11/17 (7 days). If patient stable and no new (+) BC, possible D/C back to [place] tomorrow if kidney function is stable and continues to improve, . - patient now afebrile UTI - Per records, pt currently on Ertapenem 1gm qd for ESBL UTI - U/a w/ small LE and minimal bacteriuria - culture not indicated. - ID following GUSTAVO - Creatinine 1.83, previously 1.03 on 09/28/15. Improving - continue IVF for hydration - continue to hold Bumex for now. - avoid nephrotoxic agents - am labs to monitor trend A-fib, chronic - rate controlled - Continue home Diltiazem, Amiodarone, Bystolic and hold Pradaxa. I got a page from pharmacy yesterday. Because pt's CrCl is <30, the recommendation is to hold pradaxa as pt is on amiodarone. on heparin gtt at midnight >12 since last dose of pradaxa and cover pt that way until her CrCl is >30. Appreciate assistance from pharmacy DM Hyperglycemia - BS 405 at admission - continue Sliding scale w/ Accu-Cheks. - obtain hgbA1c - BS 165 this am Anemia - hemoglobin 9.6 --> 9.1-->9.0 - no e/o active bleeding - obtain am labs to monitor trend DVT Prophylaxis - heparin Discharge Planning Continue IV antibiotics until tomorrow, if repeat BC neg, may be d/c tomorrow as long as Cr trending down and CrCl >30 to be able to resume pradaxa. Infectious disease following, appreciate recommendations. Pt will be d/c to rehab d/c [place] Problem Qualifiers (1) Fall: Qualified Code: W19.XXXA - Fall, initial encounter (2) Sepsis: Qualified Code: A41.9 - Sepsis, due to unspecified organism Kaitlin Verma MD Jan 11, 2017 13:32
--- NOTE | 2017-01-11 13:40 | HHI.DS ---
Discharge Summary Admission Date Jan 07, 2017 at 22:43 Discharge Date: Jan 11, 2017 Admitting Diagnosis SEPSIS, ARF (1) Fall ICD Code: W19.XXXA Diagnosis: Principal (2) Sepsis ICD Code: A41.9 Diagnosis: Principal (3) UTI (urinary tract infection) ICD Code: N39.0 Diagnosis: Principal (4) GUSTAVO (acute kidney injury) ICD Code: N17.9 Diagnosis: Principal (5) A-fib ICD Code: I48.91 Diagnosis: Secondary (6) Dementia ICD Code: F03.90 Diagnosis: Secondary (7) DM (diabetes mellitus) ICD Code: E11.9 Diagnosis: Secondary Procedures none Brief History - From Admission This is a 71-year-old female with a PMH of Depression, HTN, Hyperlipidemia, CHF (Echo 09/22/15 w/ EF 65-70%), A-fib on Pradaxa, Dm, Glaucoma, Dementia and UTI who was sent to the ER from [facility] for eval after unwitnessed fall. Per report, pt found down by staff member. Pt unable to provide history secondary to underlying dementia but is able to say she hit her head. No apparent LOC. On arrival, BP 151/77, HR 97, O2 sat 97% on RA, Temp 100.4. WBC normal however elevated neutrophil count. Creatinine 2.26, previously 1.03 on . BNP 493. Lactic Acid 2.0. INR 1.2. UA with small LE and mild bacteriuria. CXR with possible mild pulmonary edema. CT Head with no acute findings. Per review of records, patient with recent admission to , found to have ESBL UTI, on Ertapenem 1gm qd, started on 01/05/17 x10 days. CBC/BMP: 01/11/17 0630 01/11/17 0630 Significant Findings Laboratory Tests Test 01/09/17 01/09/17 01/09/17 01/10/17 05:25 16:49 23:06 06:05 Red Blood Count 3.19 MIL/MM3 3.18 MIL/MM3 (4.00-5.30) (4.00-5.30) Hemoglobin 9.0 GM/DL 9.0 GM/DL (11.6-15.3) (11.6-15.3) Hematocrit 28.4 % 28.0 % (35.0-46.0) (35.0-46.0) Mean Corpuscular Hemoglobin 31.7 % Concent (32.0-36.0) Neutrophils (%) (Auto) 77.1 % (16.0-70.0) Blood Urea Nitrogen 43 MG/DL (7-18) Creatinine 1.83 MG/DL (0.50-1.00) Estimat Glomerular Filtration 27 ML/MIN (>89) Rate Random Glucose 165 MG/DL (74-106) Calcium Level 7.8 MG/DL (8.5-10.1) Prothrombin Time 13.2 SEC (9.8-11.6) Activated Partial 40.1 SEC 40.4 SEC 42.8 SEC Thromboplast Time (24.3-30.1) (24.3-30.1) (24.3-30.1) Test 01/10/17 01/11/17 01/11/17 23:45 06:30 12:55 Activated Partial 34.3 SEC 39.4 SEC 46.2 SEC Thromboplast Time (24.3-30.1) (24.3-30.1) (24.3-30.1) Red Blood Count 3.20 MIL/MM3 (4.00-5.30) Hemoglobin 9.2 GM/DL (11.6-15.3) Hematocrit 28.3 % (35.0-46.0) Neutrophils % (Manual) 84 % (16-70) Ovalocytes 1+ (NORMAL) Chloride Level 108 MEQ/L (98-107) Blood Urea Nitrogen 36 MG/DL (7-18) Creatinine 1.67 MG/DL (0.50-1.00) Estimat Glomerular Filtration 30 ML/MIN (>89) Rate Random Glucose 208 MG/DL (74-106) Calcium Level 7.9 MG/DL (8.5-10.1) Imaging Last Impressions Head CT 01/07/172000 Signed Impressions: Service Date/Time: Saturday, January 07, 2017 22:09 - CONCLUSION: Slight atrophic and small vessel ischemic changes without any evidence for acute hemorrhage or mass effect. Fidelia Diallo MD Chest X-Ray 01/07/172000 Signed Impressions: Service Date/Time: Saturday, January 07, 2017 20:04 - CONCLUSION: Probable mild pulmonary edema. Fidelia Diallo MD PE at Discharge GENERAL: Well-nourished, well-developed elderly patient in NAD. She chooses to keep her eyes closed but briefly opens them. Follows some commands. NECK: Supple. Trachea midline. CARDIOVASCULAR: Regular rate and rhythm. No murmur appreciated. RESPIRATORY: No accessory muscle use. Clear to auscultation. Breath sounds equal bilaterally. GASTROINTESTINAL: Abdomen soft, non-tender, nondistended. Normoactive bowel sounds x4. MUSCULOSKELETAL: No obvious deformities. Extremities without edema. Restraints in place NEUROLOGICAL: Seems more alert today. Able to move all extremities. PSYCHIATRIC: Confused. Restraints still in place Hospital Course 71yo female with dementia, afib on Pradaxa and recently diagnosed ESBL UTI on Ertapenem admitted s/p fall and closed head trauma. The patient was treated with IV antibiotics invanz. Cleared by ID for DC. Patient also with gustavo on ckd. She was on heparin during the stay, can restart pradaxa as OP as GFR> 30. Patient improved, finished IV antibiotics. She was noted with urinary retention 400 cc by bladder US, Jewell was placed. Patient was discharged to SNF in stable condition , to follow up as OP with PCP and consultants. Noted with sob in the morning 01/11. dessatng in 80s, she received nebs and saturations improved. Give O2 by NC keep O2 sat > 92%. Fall Dementia - unwitnessed fall at Rehab, found by staff member, reports +head trauma, no LOC. - CT Head w/ no acute findings. No other injuries noted. -Physical therapy following. -Speech therapy evaluated the patient and recommends a mechanical soft, nectar consistency thickened liquids - continue home medications - case mgmt consulted to assist with discharge planning. Discussed with RN, will try to keep her off restraints and see how she does overnight. Sepsis, source ESBL UTI - Temp 100.4, RR 26, HR 107, WBC normal however elevated neutrophil count, on outpatient IV Abx for UTI. - Lactic acid 2.0 - Blood Cultures growing gram-positive cocci and staph coagulase negative. Infectious disease following. Patient on ertapenem. Give last dose of Invanz is 01/11/17 (7 days). If patient stable and no new (+) BC, possible D/C back to NH tomorrow if kidney function is stable and continues to improve, . - patient now afebrile UTI - Per records, pt currently on Ertapenem 1gm qd for ESBL UTI - U/a w/ small LE and minimal bacteriuria - culture not indicated. - ID following GUSTAVO - Creatinine 1.83, previously 1.03 on 09/28/15. Improving - continue IVF for hydration - continue to hold Bumex for now. - avoid nephrotoxic agents - am labs to monitor trend A-fib, chronic - rate controlled - Continue home Diltiazem, Amiodarone, Bystolic and hold Pradaxa. I got a page from pharmacy yesterday. Because pt's CrCl is <30, the recommendation is to hold pradaxa as pt is on amiodarone. on heparin gtt at midnight >12 since last dose of pradaxa and cover pt that way until her CrCl is >30. Appreciate assistance from pharmacy DM Hyperglycemia - BS 405 at admission - continue Sliding scale w/ Accu-Cheks. - obtain hgbA1c - BS 165 this am Anemia - hemoglobin 9.6 --> 9.1-->9.0 - no e/o active bleeding - obtain am labs to monitor trend DVT Prophylaxis - heparin Discharge Planning Continue IV antibiotics until tomorrow, if repeat BC neg, may be d/c as long as Cr trending down and CrCl >30 to be able to resume pradaxa. Infectious disease following, appreciate recommendations. d/c to SNF in stable condition. Finished course of invanz, per ID patient can be DC to SNF. PICC line to be removed after last dose of antibiotic. Pt Condition on Discharge: Stable Discharge Disposition: Discharge to SNF Discharge Time: > 30 minutes Discharge Instructions DIET: Follow Instructions for: Heart Healthy Diet, Diabetic Diet Speech Therapy-Diet Recommends: Mechanical Soft, [place] Thickened Liquids Activities you can perform: Regular-No Restrictions Follow up Referrals: PCP Follow-up - 3-5 Days Continued Medications: Acetaminophen (Mapap) 325 Mg Tab 650 MG PO Q6H PRN P/F TAB Albuterol Sulfate 8 GM Inhaler (Ventolin Hfa) 8 Gm Aero 2 PUFF INH Q4 * SHAKE WELL BEFORE USE * PRN SHORTNESS OF BREATH BOX Amiodarone (Amiodarone) 200 Mg Tab 200 MG PO Q8HR Regulate Heart Beat #30 Ref 0 TAB Bumetanide (Bumetanide) 2 Mg Tab 2 MG PO DAILY Ref 0 TAB Calcium Citrate (Calcitrate) 950 Mg Tab 950 MG PO BID Calcium Supplement Ref 0 TAB Cholecalciferol (Vitamin D-3) 2 000 Tab 1000 UNIT PO DAILY TAB Dabigatran Etexilate (Pradaxa 150 Mg Cap) 150 Mg Cap 75 MG PO BID CAP Diltiazem (Diltiazem) 60 Mg Tab 60 MG PO Q6HR Angina #120 Ref 0 TAB Docusate Sodium (Colace 100 Mg Cap) 100 Mg Cap 100 MG PO BID PRN CONSTIPATION CAP Escitalopram (Escitalopram) 10 Mg Tab 10 MG PO DAILY #30 Ref 0 TAB Ferrous Sulfate (Ferrousul) 325 Mg Tab 1 TAB PO DAILY Fluticasone Propionate (Flonase) 0.05 % Naspr 1 SPR NA HS 1 SPRAY EACH NOSTRIL SPRAY Fluticasone-Salmeterol 12 GM Inh (Advair Hfa 12 GM Inh) 115-21 Mcg/Act Aer 2 PUFF INH BID #1 Ref 0 INHALER Insulin Lispro (Human) Inj (Humalog Inj) 1,000 Unit/10 Ml Vial 2-12 UNITS SQ ACHS Max dose at bedtime:( )units; sugars < 70,(0)units; sugars 150-199,(2)units; sugars 200-249,(4)units; sugars 250-299,(7)units; sugars 300- 349,(10)units; sugars more than 349,(12)units. Blood Sugar Management #1 Ref 0 VIAL Meclizine (Meclizine) 25 Mg Tab 25 MG PO TID PRN VERTIGO Ref 0 TAB Nebivolol (Bystolic) 10 Mg Tab 10 MG PO BID Blood Pressure Management #30 Ref 0 TAB Omeprazole (Hm Omeprazole) 20 Mg Tab 40 MG PO DAILY TAB Potassium Chloride ER (Klor-Con 10) 10 Meq Tab 10 MEQ PO DAILY Electrolyte Replacement #30 Ref 0 TAB Quetiapine XR (Seroquel XR) 50 Mg Tab 50 MG PO HS #30 Ref 0 TAB Discontinued Medications: Ertapenem Inj (Invanz Inj) 1 Gm Addvial 500 MG IV Q24H ADMINISTER IN 100ML NS Infection Ref 0 INJECTION Kaitlin Verma MD Jan 11, 2017 13:40
[2017-01-11 16:00] VITALS: BP 104/56; PULSE 54; RESP 18; TEMP 97.4; O2SAT 96
[2017-01-11] MEDS: ERTAPENEM 500 MG/NS 50 ML IV SCH ×2 (17:15)
== END 2017-01-11 19:08 | DRG 872 ==
LOC: NEPE 19:14 → NEDA 22:43 → NEDH 01-08 06:16 → HCIS 01-08 11:32 → N04B 01-08 22:31
PROVIDERS: ADMIT Hospitalist; ATTEND Hospitalist
PROC: 0T9B70Z Drainage of Bladder with Drainage Device, Via Natural or Artificial Opening (ICD-10-PCS; principal; 2017-01-07)
DX: A41.9 Sepsis, unspecified organism (principal); N17.9 Acute kidney failure, unspecified; E11.22 Type 2 diabetes mellitus with diabetic chronic kidney disease; I13.0 Hypertensive heart and chronic kidney disease with heart failure and stage 1 through stage 4 chronic kidney disease, or unspecified chronic kidney disease; F03.90 Unspecified dementia, unspecified severity, without behavioral disturbance, psychotic disturbance, mood disturbance, and anxiety; I50.9 Heart failure, unspecified; N39.0 Urinary tract infection, site not specified; E11.65 Type 2 diabetes mellitus with hyperglycemia; M19.90 Unspecified osteoarthritis, unspecified site; E78.00 Pure hypercholesterolemia, unspecified; N18.9 Chronic kidney disease, unspecified; F32.9 Major depressive disorder, single episode, unspecified; J44.9 Chronic obstructive pulmonary disease, unspecified; K21.9 Gastro-esophageal reflux disease without esophagitis; Z79.4 Long term (current) use of insulin; I48.2 Chronic atrial fibrillation; I45.10 Unspecified right bundle-branch block; H40.9 Unspecified glaucoma; E78.5 Hyperlipidemia, unspecified; B96.20 Unspecified Escherichia coli [E. coli] as the cause of diseases classified elsewhere; Z16.12 Extended spectrum beta lactamase (ESBL) resistance; Z78.1 Physical restraint status; D64.9 Anemia, unspecified
CPT/HCPCS: 51702; 70450; 71010; 80048; 80053; 81001; 82272; 82948; 83036; 83605; 83735; 83880; 85007; 85025; 85027; 85610; 85730; 86403; 87040; 87077; 87186; 87205; 93005; 94664; 96374; J1335; J1644; J1815; J2060; J7030